=== PATIENT | female | born 1965 | race Caucasian/White ===

== ENCOUNTER → 2017-07-29 08:52 | Outpatient (CLI) | payer MEDICAID, SELFPAY ==
[2017-07-29 10:36] LABS: Hemoglobin A1c 7.5 % (4.2-6.3)
[2017-07-29 10:54] LABS: ALB/GLOB Ratio 1.1 RATIO (0.9-2.4); AST(SGOT) 34 U/L (15-37); Alanine Aminotransfer ALT/SGPT 47 U/L (12-78); Albumin, Serum 3.8 g/dL (3.4-5.0); Alkaline Phosphatase 85 U/L (45-117); Anion Gap 10 (5-15); BUN 17 mg/dL (7-18); BUN/Creat Ratio 21.3 RATIO (10-20); Calcium,Total 9.1 mg/dL (8.5-10.1); Chloride 102 mmol/L (98-107); EST Glomerular Filtration Rate 80 mL/min (>60); Est Glom Filt Rate - Afr Amer 97 mL/min (>60); Globulin 3.6 g/dL (2.2-4.2); Glucose 127 mg/dL (70-110); Potassium 3.7 mmol/L (3.5-5.1); Protein, Total 7.4 g/dL (6.4-8.2); Sodium Level 139 mmol/L (136-145)
== END ==
PROVIDERS: Family Provider Family Medicine; PCP Family Medicine; Visit Provider Nurse Practitioner
DX: E11.9 Type 2 diabetes mellitus without complications (principal)
CPT/HCPCS: 36415; 80053; 83036

== ENCOUNTER → 2017-08-18 16:35 | Outpatient (CLI) | payer MEDICAID, SELFPAY ==
--- NOTE | 2017-08-18 16:39 | RAD_ITS ---
STUDY: X-RAY CHEST REASON FOR EXAM: Female, 52 years old. Cough TECHNIQUE: Frontal and lateral views of the chest. COMPARISON: None. FINDINGS: The lungs are clear and expanded. There is no demonstrated pleural abnormality. Normal size heart. Normal mediastinum and phuong. Normal visualized pulmonary arteries. Normal visualized aortic arch and descending thoracic aorta. Normal visualized thoracic spine. Normal visualized ribs, clavicles, and shoulders. There is no demonstrated abnormality of the visualized soft tissue structures of the upper abdomen. RAD/Chest PA and Lateral IMPRESSION: Normal x-ray examination of the chest. Electronically Signed: Benito Islas MD at 23:59 EST , Service support ,
[2017-08-18 17:53] LABS: Absolute Lymphocyte Count 0.76 X10^3/ul (0.83-4.51); Absolute Neutrophil Count 4.8 X10^3/uL (2.0-7.7); Basophil# 0.02 X10^3/uL; Basophil% 0.3 % (0-1); Eosinophil# 0.28 X10^3/uL; Eosinophils% 4.4 % (0-5); Hematocrit 39.7 % (37-47); Hemoglobin 13.1 g/dl (12.0-15.0); Lymphocyte # 0.76 X10^3/ul (4.0); Lymphocyte % 11.9 % (19-41); Mean Corpuscular Hgb 29.5 pg (27.0-32.0); Mean Corpuscular Volume 89.4 fL (81-99); Mean Platelet Vol. 9.4 fl (6.2-12.0); Monocyte# 0.43 X10^3/uL; Monocyte% 6.8 % (0-10); Neutrophil # 4.83 X10^3/uL (2.7-7.7); Neutrophil % 75.8 % (47-70); Platelet Count 213 K/mm3 (150-450); RBC Distribution Width CV 14.3 % (11.6-14.6); RBC Distribution Width SD 44.7 fl (35.1-43.9); Red Blood Count 4.44 M/mm3 (4.2-5.4); White Blood Count 6.4 K/mm3 (4.4-11.0)
[2017-08-18 17:54] LABS: POSITIVE COUNT NO; POSITIVE DIFFERENTIAL NO; POSITIVE MORPHOLOGY NO
== END ==
PROVIDERS: Family Provider Family Medicine; PCP Family Medicine; Visit Provider Family Medicine
DX: R05 Cough (principal); J45.901 Unspecified asthma with (acute) exacerbation; E11.9 Type 2 diabetes mellitus without complications
CPT/HCPCS: 36415; 71046; 85025

== ENCOUNTER → 2017-11-18 10:42 | Outpatient (CLI) | payer BC, SELFPAY ==
[2017-11-18 12:55] LABS: Hemoglobin A1c 7.8 % (4.2-6.3)
[2017-11-18 12:58] LABS: AST(SGOT) 63 U/L (15-37); Alanine Aminotransfer ALT/SGPT 48 U/L (13-56); Albumin, Serum 3.9 g/dL (3.2-5.0); Alkaline Phosphatase 97 U/L (45-117); Anion Gap 8 (5-15); BUN 12 mg/dL (7-18); BUN/Creat Ratio 13.2 RATIO (10-20); Calcium,Total 8.8 mg/dL (8.5-10.1); Chloride 107 mmol/L (98-107); Cholesterol 125 mg/dL (200); Creatinine, Serum 0.91 mg/dL (0.55-1.02); EST Glomerular Filtration Rate 69 mL/min (>60); Est Glom Filt Rate - Afr Amer 83 mL/min (>60); Globulin 3.8 g/dL (2.2-4.2); Glucose 172 mg/dL (74-106); High Density Lipoprotein 40 mg/dL; Potassium 4.2 mmol/L (3.5-5.1); Protein, Total 7.7 g/dL (6.4-8.2); Sodium Level 139 mmol/L (136-145); T4 Free Direct 0.93 ng/dL (0.76-1.46); Thyroid Stim Hormone (TSH) 2.16 uIU/mL (0.358-3.74); Triglycerides 91 mg/dL; Very Low Density Lipoprotein 18 mg/dL (5-40)
[2017-11-18 15:55] LABS: Microalbumin,Random Urine 6.4 mg/L (NO RANGE EST.); Microalbumin:Creatinine Ratio 4.6 mg/g CRE (<30 mg/g CRE)
== END ==
PROVIDERS: Family Provider Family Medicine; PCP Family Medicine; Visit Provider Nurse Practitioner
DX: E11.65 Type 2 diabetes mellitus with hyperglycemia (principal); E03.9 Hypothyroidism, unspecified; E78.5 Hyperlipidemia, unspecified; E11.69 Type 2 diabetes mellitus with other specified complication
CPT/HCPCS: 36415; 80053; 80061; 82043; 82570; 83036; 84439; 84443

== ENCOUNTER → 2017-12-21 10:22 | Outpatient (CLI) | payer BC, SELFPAY ==
[2017-12-21 12:50] LABS: BUN 13 mg/dL (7-18); Glucose 154 mg/dL (74-106)
[2017-12-21 12:51] LABS: ALB/GLOB Ratio 1.1 RATIO (0.9-2.4); AST(SGOT) 36 U/L (15-37); Alanine Aminotransfer ALT/SGPT 44 U/L (13-56); Albumin, Serum 3.7 g/dL (3.2-5.0); Alkaline Phosphatase 80 U/L (45-117); Anion Gap 9 (5-15); BUN/Creat Ratio 15.1 RATIO (10-20); Calcium,Total 8.9 mg/dL (8.5-10.1); Chloride 107 mmol/L (98-107); Creatinine, Serum 0.86 mg/dL (0.55-1.02); EST Glomerular Filtration Rate 73 mL/min (>60); Est Glom Filt Rate - Afr Amer 88 mL/min (>60); Globulin 3.5 g/dL (2.2-4.2); Potassium 4.3 mmol/L (3.5-5.1); Protein, Total 7.2 g/dL (6.4-8.2); Sodium Level 138 mmol/L (136-145)
== END ==
PROVIDERS: Family Provider Family Medicine; PCP Family Medicine; Visit Provider Nurse Practitioner
DX: E11.65 Type 2 diabetes mellitus with hyperglycemia (principal); E11.69 Type 2 diabetes mellitus with other specified complication; E78.5 Hyperlipidemia, unspecified
CPT/HCPCS: 36415; 80053

== ENCOUNTER → 2018-05-12 20:35 | Outpatient (CLI) | payer BC, SELFPAY | PROVIDERS: Family Provider Family Medicine; PCP Family Medicine; Referring Provider Physician Assistant Surgical; Visit Provider Physician Assistant Surgical | DX: J02.9 Acute pharyngitis, unspecified (principal) | CPT/HCPCS: 87081 ==

== ENCOUNTER → 2018-05-19 10:00 | Outpatient (CLI) | payer BC, SELFPAY ==
[2018-05-12 12:56] VITALS: BMI 43.2
[2018-05-19 10:42] LABS: Hemoglobin A1c 7.5 % (4.2-6.3)
[2018-05-19 11:04] LABS: ALB/GLOB Ratio 1.1 RATIO (0.9-2.4); AST(SGOT) 25 U/L (15-37); Alanine Aminotransfer ALT/SGPT 46 U/L (13-56); Albumin, Serum 3.8 g/dL (3.2-5.0); Alkaline Phosphatase 92 U/L (45-117); Anion Gap 9 (5-15); BUN 15 mg/dL (7-18); BUN/Creat Ratio 17.5 RATIO (10-20); Calcium,Total 8.8 mg/dL (8.5-10.1); Chloride 106 mmol/L (98-107); Creatinine, Serum 0.86 mg/dL (0.55-1.02); EST Glomerular Filtration Rate 73 mL/min (>60); Est Glom Filt Rate - Afr Amer 89 mL/min (>60); Globulin 3.4 g/dL (2.2-4.2); Glucose 151 mg/dL (74-106); Potassium 4.3 mmol/L (3.5-5.1); Protein, Total 7.2 g/dL (6.4-8.2); Sodium Level 141 mmol/L (136-145)
== END ==
PROVIDERS: Family Provider Family Medicine; PCP Family Medicine; Referring Provider Nurse Practitioner; Visit Provider Nurse Practitioner
DX: E11.65 Type 2 diabetes mellitus with hyperglycemia (principal)
CPT/HCPCS: 36415; 80053; 83036

== ENCOUNTER → 2018-06-05 07:01 | Outpatient (CLI) | payer BC, SELFPAY ==
[2018-05-30 13:33] VITALS: BMI 43.2
--- NOTE | 2018-06-05 07:02 | BI_ITS ---
MAMMOGRAPHY - BILATERAL SCREENING REASON FOR EXAM: Female, 52 years old. Routine annual screening examination. PERTINENT HISTORY: Aunt with breast cancer. Remote excisional left breast biopsy. TECHNIQUE: Digital bilateral breast pasquale (3D mammographic acquisition) in the CC and MLO projections. 2-D mediolateral oblique (MLO) and craniocaudad (CC) views of both breasts were obtained. CAD: Full Field Digital Mammography with Computer Added Detection was performed. COMPARISON: Comparison is made with prior study dated August 21, 2015 and June 15, 2014. FINDINGS: Breast Composition: The breasts are almost entirely fatty. There are no dominant masses or suspicious calcifications. Stable small benign-appearing bilateral axillary lymph nodes. No other significant abnormalities are identified. There has been no significant change since the prior study. BI/SCREENING MAMM (CAD), BILAT IMPRESSION: Stable bilateral screening mammogram. Yearly follow-up mammogram recommended. (A) ASSESSMENT CATEGORY: BIRADS Category 2: Benign. A letter regarding these results will be sent to the patient by the facility within 30 days. Approximately 10% of breast cancers are not detected by mammography. A normal mammogram should not delay biopsy of a clinically suspicious abnormality. [id number] Electronically Signed: Vitor Park MD at 11:36 EST Tel [phone], Service support ,
--- OUTSIDE RECORDS SUMMARY | 2018-07-29 04:59 | XMS RPT_ITS ---
:1965 Author Organization [place] Support Name Relationship Address Phone ALBERTOJUDSON Unavailable [address] + [address] [place] [address] [facility] Unavailable [address] + [place] [address] JUDSON DOMINGUEZ Unavailable [address] + [place] [address] [facility] Unavailable Unavailable + [place] [address] JUDSON DOMINGUEZ Unavailable [address] + [place] [address] MOUSTAPHA DOMINGUEZ Unavailable [address] + [place] [address] S Unavailable Unavailable Unavailable JUDSON DOMINGUEZ Unavailable [address] + [place] [address] MOUSTAPHA DOMINGUEZ Unavailable [address] + [place] [address] S Unavailable Unavailable Unavailable JUDSON DOMINGUEZ Unavailable [address] + [place] [address] MOUSTAPHA DOMINGUEZ Unavailable [address] + [place] [address] S Unavailable Unavailable Unavailable JUDSON DOMINGUEZ Unavailable [address] + [place] [address] MOUSTAPHA DOMINGUEZ Unavailable [address] + [place] [address] S Unavailable Unavailable Unavailable JUDSON DOMINGUEZ Unavailable [address] + [place] [address] MOUSTAPHA DOMINGUEZ Unavailable [address] + [place] [address] S Unavailable Unavailable Unavailable JUDSON DOMINGUEZ Unavailable [address] + [place] [address] MOUSTAPHA DOMINGUEZ Unavailable [address] + [place] [address] S Unavailable Unavailable Unavailable JUDSON DOMINGUEZ Unavailable [address] + [place] [address] MOUSTAPHA DOMINGUEZ Unavailable [address] + [place] [address] S Unavailable Unavailable Unavailable JUDSON DOMINGUEZ Unavailable [address] + [place] [address] MOUSTAPHA DOMINGUEZ Unavailable [address] + [place] [address] S Unavailable Unavailable Unavailable JUDSON DOMINGUEZ Unavailable [address] + [place] [address] MOUSTAPHA DOMINGUEZ Unavailable [address] + [place] [address] S Unavailable Unavailable Unavailable JUDSON DOMINGUEZ Unavailable [address] + [place] [address] MOUSTAPHA DOMINGUEZ Unavailable [address] + [place] [address] S Unavailable Unavailable Unavailable JUDSON DOMINGUEZ Unavailable [address] + [place] [address] MOUSTAPHA DOMINGUEZ Unavailable [address] + [place] [address] S Unavailable Unavailable Unavailable JUDSON DOMINGUEZ Unavailable [address] + [place] [address] MOUSTAPHA DOMINGUEZ Unavailable [address] + [place] [address] S Unavailable Unavailable Unavailable JUDSON DOMINGUEZ Unavailable [address] + [place] [address] MOUSTAPHA DOMINGUEZ Unavailable [address] + [place] [address] S Unavailable Unavailable Unavailable Care Team Providers Name Role Phone Adilene Baird Attending Unavailable María Marrero NP-C Attending Unavailable Shaq Hamilton Primary Care Unavailable María Marrero NP-C Attending Unavailable Kasey Rudd Referring Unavailable Shaq Hamilton Primary Care Unavailable Sukumar Hadley Attending Unavailable Alfonso, Shaq Referring Unavailable Alfonso, Shaq Primary Care Unavailable Alfonso, Shaq Attending Unavailable Alfonso, Shaq Referring Unavailable Alfonso, Shaq Primary Care Unavailable Angeles Mir Attending Unavailable Alfonso, Shaq Referring Unavailable Alfonso, Shaq Primary Care Unavailable María Marrero [facility] Attending Unavailable ShookMaría [facility] Referring Unavailable Alfonso, Shaq Primary Care Unavailable Shook, María Hung [facility] Attending Unavailable Alfonso, Shaq Referring Unavailable Alfonso, Shaq Primary Care Unavailable Shook, María Hung [facility] Attending Unavailable Alfonso, Shaq Primary Care Unavailable Sai Walsh Attending Unavailable Alfonso, Shaq Referring Unavailable Nico, Sai Attending Unavailable Alfonso, Shaq Primary Care Unavailable Nico, Sai Referring Unavailable Shook, María Hung [facility] Attending Unavailable Shook, María Hung [facility] Referring Unavailable Alfonso, Shaq Primary Care Unavailable Sholesli, María Hung [facility] Attending Unavailable Alfonso, Shaq Referring Unavailable Oleghe, Efewongbe Attending Unavailable Alfonso, Shaq Referring Unavailable Oleghe, Efewongbe Attending Unavailable Oleghe, Efewongbe Referring Unavailable Oleghe, Efewongbe Primary Care Unavailable María Marrero [facility] Consulting Unavailable PROBLEMS PROBLEMS DATE TYPE CONDITION / CODE ATTENDING STATUS SOURCE 05/30/2018 Unknown Z12.31 - Encounter Oleghe, Active [facility] for screening [facility] mammogram for Hospital malignant neoplasm Repository of breast / Z12.31(ICD-10) 05/30/2018 Unknown E11.9 - Type 2 Oleghe, Active [facility] diabetes mellitus [facility] without Hospital complications / Repository E11.9(ICD-10) 05/30/2018 Unknown R13.10 - Dysphagia, Oleghe, Active [facility] unspecified / [facility] R13.10(ICD-10) Hospital Repository 05/30/2018 Unknown H91.90 - Oleghe, Active [facility] Unspecified hearing [facility] loss, unspecified Hospital ear / Repository H91.90(ICD-10) 05/15/2018 Unknown J02.9 - Acute Sai Walsh Active [facility] pharyngitis, Community unspecified / Hospital J02.9(ICD-10) Repository 11/23/2017 Unknown E03.9 - María Marrero Active [facility] Hypothyroidism, [facility] Community unspecified / Hospital E03.9(ICD-10) Repository 11/23/2017 Unknown E11.65 - Type 2 María Marrero Active [facility] diabetes mellitus [facility] Community with hyperglycemia Hospital / E11.65(ICD-10) Repository 11/23/2017 Unknown E11.69 - Type 2 María Marrero Active [facility] diabetes mellitus [facility] with other Hospital specified Repository complication / E11.69(ICD-10) 11/23/2017 Unknown I10 - Essential María Marrero Active [facility] (primary) [facility] hypertension / Hospital I10(ICD-10) Repository 11/18/2017 Unknown E78.5 - María Marrero Active [facility] Hyperlipidemia, [facility] Community unspecified / Hospital E78.5(ICD-10) Repository 08/20/2017 Unknown R50.9 - Fever, Mir, Active [facility] unspecified / [facility] R50.9(ICD-10) Hospital Repository PROCEDURES PROCEDURES No Procedure Records FoundRESULTS RESULTS SCREENING MAMM (CAD), Observed: 06/05/2018 Status: F Source: [facility] 7:02 AM [facility] HOSPITAL REPOSITORY [facility] Imaging Services [address] [place] [address] SCREENING MAMM (CAD), [facility] MR#: [id number] Acct: [id number] Name: GEOVANNA DOMINGUEZ Rep #: [id number] : 1965 F 52 From: Vitor Park MD PCP: Marietta Strickland MD Status: [facility] Study: SCREENING MAMM (CAD), BILAT Date of Exam: 06/05/18 Exam# [id number] Ordering Dr: Marietta Strickland MD MAMMOGRAPHY - BILATERAL SCREENING REASON FOR EXAM: Female, 52 years old. Routine annual screening examination. PERTINENT HISTORY: Aunt with breast cancer. Remote excisional left breast biopsy. TECHNIQUE: Digital bilateral breast pasquale (3D mammographic acquisition) in the CC and MLO projections. 2-D mediolateral oblique (MLO) and craniocaudad (CC) views of both breasts were obtained. CAD: Full Field Digital Mammography with Computer Added Detection was performed. COMPARISON: Comparison is made with prior study dated August 21, 2015 and June 15, 2014. FINDINGS: Breast Composition: The breasts are almost entirely fatty. There are no dominant masses or suspicious calcifications. Stable small benign-appearing bilateral axillary lymph nodes. No other significant abnormalities are identified. There has been no significant change since the prior study. BI/SCREENING MAMM (CAD), BILAT IMPRESSION: Stable bilateral screening mammogram. Yearly follow-up mammogram recommended. (A) ASSESSMENT CATEGORY: BIRADS Category 2: Benign. A letter regarding these results will be sent to the patient by the facility within 30 days. Approximately 10% of breast cancers are not detected by mammography. A normal mammogram should not delay biopsy of a clinically suspicious abnormality. [id number] Electronically Signed: Vitor Park MD at 11:36 EST Tel [phone], Service support , CC: Marietta Strickland MD Wood Technologist: Signed INTERNAL MEDICINE Observed: 06/02/2018 Status: F Source: [facility] OFFICE VISIT 1:26 PM [facility] Internal Medicine [address] [place] [address] [address] [place] [address] OFFICE VISIT Date of Service: 05/30/18 MR#: [id number] Acct: [id number] Name: GEOVANNA DOMINGUEZ Rep #: [id number] : 1965 Provider: Marietta Strickland MD Age/Sex: 52/F Location: [facility] Status: Signed Intake Vital Signs05/30/18 Body Mass Index (BMI) 43.2 05/30/18 Height 5 ft 7.5 in Intake Visit Reasons: EST Chief Complaint: EST Care. Is patient in pain?: No Allergies hay fever Allergy (Severe, Uncoded 05/30/18 13:27) Unknown poison faith Allergy (Severe, Uncoded 05/30/18 13:27) Unknown Medications aspirin 81 mg tablet,delayed release 81 mg PO QDAY 07/18/17 [History Confirmed 05/22/18] metformin ER 500 mg tablet,extended release 24 hr 1,000 mg PO BID tab 07/18/17 [History Confirmed 05/22/18] albuterol sulfate HFA 90 mcg/actuation aerosol inhaler See Rx Instructions INHALATION Q4H PRN g 08/03/17 [History Confirmed 05/22/18] levothyroxine 100 mcg capsule 100 mcg PO QDAY #60 cap 11/23/17 [Rx Confirmed 05/22/18] lisinopril 20 mg tablet 20 mg PO QDAY #30 tab 11/23/17 [Rx Confirmed 05/22/18] lovastatin 20 mg tablet 20 mg PO QPM #30 tab 11/23/17 [Rx Confirmed 05/22/18] glyburide 5 mg tablet 10 mg PO BID #180 tab 01/02/18 [Rx Confirmed 05/22/18] dulaglutide 1.5 mg/0.5 mL subcutaneous pen injector 1.5 mg SC QWEEK #2 ml 05/30/18 [Rx Confirmed 05/30/18] Post menopausal: Yes Nurse's Note: Pt presents today to establish care. [facility] Medical History Anemia (Acute) Back problem (Acute) Bone fracture (Acute) Breast lump (Acute) Chronic bronchitis (Acute) Depression (Acute) Diabetes type 2, controlled (Acute) Gallstones (Acute) High cholesterol (Acute) Pneumonia (Acute) Seasonal allergies (Acute) UTI (urinary tract infection) (Acute) Vision problems (Acute) Surgical History H/O colonoscopy (Acute) Hx of cholecystectomy (Acute) S/P lumpectomy, left breast (Acute) Family History Mother Arthritis High cholesterol Thyroid disorder Melanoma Hypertension Father Cancer Brother Arthritis Unknown Cancer Heart disease Hypertension High cholesterol Melanoma Social History Smoking Status: Never smoker second hand exposure: No alcohol intake: never substance use type: does not use HPI HPI Chief Complaint: EST Care. Details: GEOVANNA DOMINGUEZ, is a 52yo F who presents to the office today to establish care. She also has some concerns. She has past medical history of hypertension, type II diabetes mellitus, hypothyroidism obstructive sleep apnea and obesity. A1c is said to have averaged around 7 with her most recent A1c of 7.5. She states that she has not been able to get her A1c less than this. Has been on glyburide and metformin however has not been able to afford all other diabetic medications. She reports compliance with medications. Despite her best efforts, she has struggled with weight management. Currently on a BMI of 43. She also reports concern about hearing impairment and problems with swallowing. This is said to have been ongoing for several months and has progressively worsened. She states that she wakes up at night with a choking sensation ROS Const Constitutional: No anorexia, body ache, chills, fever(s), decreased energy, malaise, night sweats, weight change, sleep problems, other, snoring, weakness, frequent falls, headache(s), abnormal sleep pattern, change in appetite, excessive sweating or fatigue Eyes Eyes: No blurry vision, change in vision, double vision, discharge, dry eyes, bulging eyes, floaters, eye pain, light sensitivity, spots in vision, tunnel vision, other or visual disturbances ENT ENT: Positive for hearing loss, tinnitus and difficulty swallowing; no ear pain, ear discharge, ear pressure, dizziness/vertigo, balance problems, nosebleed/epistaxis, nasal congestion, nasal obstruction, nose pain, sinus pressure, sinus pain, nasal discharge, post nasal drip, facial pain, dental pain, dry mouth, bad breath, hoarseness, mouth lesions, mouth pain, sore throat, neck pain, abnormal hearing, headache(s), other, lip swelling, throat swelling or tongue swelling Resp Respiratory: No cough, change in phlegm color, chest congestion, excessive phlegm production, hemoptysis, pain on inspiration, shortness of breath, pain with cough, snoring, stridor, other or wheezing Cardio Cardiology: No chest pain at rest, chest pain with exertion, leg pain with exertion, shortness of breath, dyspnea on exertion, generalized swelling, irregular heart rhythm, lightheadedness, orthopnea, radiating jaw, neck or arm pain, fast heart rate, slow heart rate, palpitations, other or excessive sweating Gastro GI: Positive for difficulty swallowing; no abdominal pain, belching, bloating, change in bowel habits, change in stool character, coffee ground emesis, constipation, cramping, diarrhea, heartburn, feeling full early, excessive flatus, incontinent of stools, Vomiting blood/hematemesis, blood in stool, loose stools, Black,tarry stools, nausea/dyspepsia, pain with swallowing, vomiting or other Genitourinary-Female: No difficulty urinating, burning urination, painful urination, urinary incontinence, urinary frequency, urinary urgency, urinary hesitancy, urinary retention, blood in urine, Frequent nighttime urination/ nocturia, post void dribbling, suprapubic fullness, side pain, sexual problems, genital lesions, genital itching, hot flashes, abnormal periods, abnormal vaginal bleeding, absent period, painful periods, light periods, heavy periods, difficulty getting , painful intercourse, pelvic pain, vaginal dryness, vaginal odor, Vaginal Itching or other Musc Musculoskeletal: Positive for muscle weakness; no joint pain, back pain, deformity, joint swelling, limited range of motion, loss of height, muscle cramps, decreased muscle mass, body aches, neck pain, radiating pain into limb, stiffness, other, abnormal walking, numbness or tingling Skin Skin: No acne, hair loss, change in hair, nail changes, boil, change in skin color, dry skin, redness, excessive hair growth, yellowing of the skin, lesions, rash, skin pain, skin ulcer, sores, skin swelling, wounds, other or itching Breast Breast: No change in breast shape, breast lump, breast pain, breast skin changes, breast swelling, nipple discharge or other Neuro Neurology: No abnormal walking, abnormal hearing, abnormal movements, abnormal speech, unsteady gait/balance, dizziness, weakness, frequent falls, headache(s), lack of coordination, loss of vision, numbness, tingling, visual disturbances, restless legs, fainting, tremor(s), other, behavioral changes, confusion or memory loss Psych Psychiatric: No abnormal sleep pattern, No lack of enjoyment, No anxiety, No behavioral changes, No change in appetite, No confusion, No depression, No difficulty concentrating, No hopelessness, No irritability, No memory loss, No mood swings, No panic attacks, No paranoia, No Thoughts of harming yourself/Others, No hallucinations, No other Endo Endocrine: No change in body appearance, cold intolerance, excessive sweating, fatigue, flushing, heat intolerance, increased thirst/drinking, increased hunger, increased urination or other Aller/Imm Allergy/Immunologic: No food intolerance, itchy eyes, lip swelling, seasonal allergy symptoms, throat swelling, tongue swelling, hives, wheezing or other Mickey/Lymp Hematologic/Lymphatic: No easy bleeding, easy bruising, enlarged lymph nodes or other Exam Const General: cooperative Orientation: alert, awake, oriented x3 HENMT Head: atraumatic, normocephalic, normal to inspection Ears: hearing grossly normal bilaterally Resp Effort AND Inspection: normal respiratory effort, able to speak in complete sentences Auscultation: Bilateral: Clear to Auscultation Cardio Rate: regular rate Rhythm: regular rhythm Heart Sounds: S1 normal, S2 normal GI Palpation: soft, no hepatosplenomegaly Musc Musculoskeletal: Yes muscle weakness Neuro General: alert, awake, oriented x3, moves all extremities, CN's II-XI intact bilaterally Extrem General: no clubbing, cyanosis or edema Psych Appearance: grossly normal Mental Status: mental status grossly normal Mood: congruent mood Affect: normal affect Assessment AND Plan 1. Problems with swallowing R13.10 Plan Said to have an ongoing for couple of months and is worsening. Reports occasionally aspirating during the day and at night/in her sleep. Refer to ENT. Orders Referrals: 2. Hearing impairment H91.90 Plan Also said to be worsening. No cerumen impaction on examination. Associated history of tinnitus. ENT referral as above. Orders Referrals: 3. Type 2 diabetes mellitus E11.9 Plan Chronic. Poorly controlled. [id number]. Due to her associated morbid obesity, I believe she will do well with the GLP-1 on SGL T-2. Cost has been an issue we will attempt to get the most cost effective medication for patient. Also did speak about the why weight program however patient will like to try out a program through her insurance/'s company. Continue current medication for now. Orders Referrals: 4. Morbid obesity E66.01 Plan Plan as above. 5. Sleep apnea G47.30 Plan Using and benefiting from CPAP. Concerns at this time. Continue current management. 6. Health care maintenance Z00.00 Plan Mammogram ordered. Pap smear due in about a year. Follows up with Dr. White for colonoscopies. Has had it every 5 years due to her family history of colon cancer. This note was generated with Hyperpotation software. It may contain incorrect words, spelling, and punctuation that were not noted in checking the note before signing. Plan Detail Other Orders Orders: Other Medications New: Coding Level of Care Code Off vis,new,level 4 Diagnoses Problems with swallowing R13.10 Hearing impairment H91.90 Type 2 diabetes mellitus E11.9 Morbid obesity E66.01 Sleep apnea G47.30 Health care maintenance Z00.00 06/02/18 1326 <Electronically signed by Marietta Strickland MD> Date Marietta Strickland MD Cosigner Signature: Date (if applicable) CC: ENDOCRINOLOGY VISIT Observed: 05/23/2018 Status: F Source: [facility] REPORT 8:26 AM [facility] [address] [place] [address] [address] [place] [address] OFFICE VISIT Date of Service: 05/22/18 MR#: [id number] Acct: [id number] Name: GEOVANNA DOMINGUEZ Rep #: [id number] : 1965 Provider: María Marrero NP Age/Sex: 52/F [place] [facility] [place]: Signed HPI History of present illness Geovanna Dominguez is a 52 year old female who presents for follow up of diabetes type 2. Diagnosed in 2009. Continues on glyburide, metformin. A1c down from 7.8 and is now 7.5 Did have A1c of 6.5 but due to cost issues we had to change medications to ones she could afford. At time of visit: -Pt denies symptoms of hypertensive emergency (CP,SOB,WEEKS, or blurred vision) and hypotension(dizziness or lightheadedness) -Pt denies symptoms of hypoglycemia ( sweaty, confusion, anxiety, tremor, hunger, palpitations) and hyperglycemia ( polydipsia, polyuria) -Pt denies potential medication adverse effect. Hypoglycemia Aware of hypoglycemia: Yes Able to self treat low BG: Yes Frequent low Blood sugar: No Has supply of glucagon: No Diet Breakfast is dried fruit and yogurt Lunch is usually left overs. Dinner is meat, potato and vegetables. Exam Const General: comfortable, well groomed Nutritional Appearance: overweight Orientation: oriented x3 HENMT Head: normal to inspection, atraumatic Ears: hearing grossly normal bilaterally Nose: nasal discharge Mouth: oral mucosae normal, moist mucous membranes Teeth and gingiva: dentition normal Eyes General: appearance normal, both eyes and all related structures Eyelids: eyelids normal Conjunctivae: conjunctivae normal Pupils: PERRL Neck Neck: normal visual inspection Neck mass: No Chest Chest palpation AND inspection: deferred Resp Effort AND Inspection: normal respiratory effort, able to speak in complete sentences, symmetric chest movement, cough Cardio Rate: regular rate Rhythm: regular rhythm Heart Sounds: S1 normal, S2 normal GI Inspection: normal to inspection Auscultation: normal bowel sounds Palpation: soft, no guarding General: deferred Skin General: no rashes or lesions noted Wounds: no wounds Diabetic Foot Pulses: L dorsalis pedis pulse: normal, R dorsalis pedis pulse: normal Monofilament test: Left foot: normal, Right foot: normal. Dry heels bilaterally. Neuro General: gait normal, normal light touch, pain and propioception Cognition: normal cognition Speech: speech normal Gait: normal gait Extrem General: normal to inspection, no pedal edema Psych Appearance: well kempt Mental Status: mental status grossly normal Mood: congruent mood Speech and Movement: speech and movement normal Thought Process: normal Thought Content: normal Judgment: judgment good Type: type 2 Cardiopulmonary symptoms: Denies chest pain at rest, myalgias or dizziness GI symptoms: Denies vomiting, constipation, diarrhea or increased hunger Skin and extremity symptoms: Denies tingling/numbness/burning Other symptoms: Denies change in vision, blurry vision or depression Pertinent visit history: Denies recent visit to ER, recent hospital admission or recent 911 calls Self monitoring: Yes Dietary compliance: Diabetes: good Diabetes education in past year: Yes Glucose testing: demonstrates correct use of meter, understands testing schedule Sick day education - understands ketone testing: Yes Physical activity: regular Intake Vital Signs05/22/18 Height 5 ft 7.5 in 05/22/18 Weight: 280 lb 05/22/18 Body Mass Index (BMI) 43.2 05/22/18 Blood Pressure 128/80 H H 05/22/18 Blood Pressure Location Lt brachial Intake Visit Reasons: Diabetes Mellitus Type 2 Coder Operator Required: No Accompanied by: Self Is patient in pain?: No Allergies hay fever Allergy (Severe, Uncoded 05/12/18 12:57) Unknown poison faith Allergy (Severe, Uncoded 05/12/18 12:57) Unknown Medications aspirin 81 mg tablet,delayed release 81 mg PO QDAY 07/18/17 [History Confirmed 05/22/18] metformin ER 500 mg tablet,extended release 24 hr 1,000 mg PO BID tab 07/18/17 [History Confirmed 05/22/18] methylcellulose (laxative) 500 mg tablet 500 mg PO QDAY tab 07/18/17 [History Confirmed 05/22/18] albuterol sulfate HFA 90 mcg/actuation aerosol inhaler See Rx Instructions INHALATION Q4H PRN g 08/03/17 [History Confirmed 05/22/18] cholecalciferol (vitamin D3) 5,000 unit capsule 5,000 unit PO QDAY 08/03/17 [History Confirmed 05/22/18] colesevelam 625 mg tablet 1,250 mg PO BID #360 tab 08/03/17 [Rx Confirmed 05/22/18] levothyroxine 100 mcg capsule 100 mcg PO QDAY #60 cap 11/23/17 [Rx Confirmed 05/22/18] lisinopril 20 mg tablet 20 mg PO QDAY #30 tab 11/23/17 [Rx Confirmed 05/22/18] lovastatin 20 mg tablet 20 mg PO QPM #30 tab 11/23/17 [Rx Confirmed 05/22/18] glyburide 5 mg tablet 10 mg PO BID #180 tab 01/02/18 [Rx Confirmed 05/22/18] PFSH Medical History Anemia (Acute) Back problem (Acute) Bone fracture (Acute) Breast lump (Acute) Chronic bronchitis (Acute) Depression (Acute) Diabetes type 2, controlled (Acute) Gallstones (Acute) High cholesterol (Acute) Pneumonia (Acute) Seasonal allergies (Acute) UTI (urinary tract infection) (Acute) Vision problems (Acute) Surgical History H/O colonoscopy (Acute) Hx of cholecystectomy (Acute) S/P lumpectomy, left breast (Acute) Family History Mother Arthritis High cholesterol Thyroid disorder Melanoma Hypertension Father Cancer Brother Arthritis Unknown Cancer Heart disease Hypertension High cholesterol Melanoma Social History Smoking Status: Never smoker second hand exposure: No alcohol intake: never substance use type: does not use ROS Const Constitutional: No chills, fever(s) or night sweats Eyes Eyes: No change in vision or blurry vision ENT ENT: No ear pain, ear discharge, nasal congestion or nosebleed/epistaxis Resp Respiratory: Positive for cough (treated cold); no shortness of breath Cardio Cardiology: No chest pain at rest, chest pain with exertion or generalized swelling Gastro GI: No vomiting, constipation, diarrhea or abdominal pain Genitourinary-Female: No difficulty urinating or burning urination Musc Musculoskeletal: No joint pain, back pain, muscle cramps or body aches Skin Skin: No lesions or rash Breast Breast: No breast lump Neuro Neurology: No dizziness or fainting Psych Psychiatric: No depression, No anxiety Endo Endocrine: No increased thirst/drinking or increased hunger Mickey/Lymp Hematologic/Lymphatic: No easy bleeding or easy bruising Assessment AND Plan Problems 1. Uncontrolled type 2 diabetes mellitus without complication, without long-term current use of insulin E11.65 2. Hypothyroidism (acquired) E03.9 3. Hyperlipidemia associated with type 2 diabetes mellitus E11.69; E78.5 Plan 1. Please schedule follow up in 3 months. 2. Lab work one week before appointment. 3. Discussed importance of regular exercise and recommend starting or continuing a regular exercise program for good health. 4. The patient was encouraged to lose weight for good health 5. The importance of monitoring blood sugar regularly was reviewed. 6. The importance of monitoring the HBA1c level regularly was reviewed. 7. The importance of prper foot care and regularly checking feet to prevent sores and loss of limbs was reviewed. 8. The importance of keeping BP at or below 130/80 to prevent stroke, heart attacks, kidney failure, blindness was reviewed. Spent approximately 30 minutes with patient with over 50% of time spent in discussion and counseling regarding medication adjustment, symptoms and treatment of hypoglycemia, diet adherence, and checking BG before driving. Coding Level of Care Code Off vis,est,level 4 Diagnoses Uncontrolled type 2 diabetes mellitus without complication, without long-term current use of insulin E11.65 Hypothyroidism (acquired) E03.9 Hyperlipidemia associated with type 2 diabetes mellitus E11.69; E78.5 05/23/18 0826 <Electronically signed by María HINOJOSA> Date María HINOJOSA Cosigner Signature: Date (if applicable) CC: HEMOGLOBIN A1C Collected: 05/19/2018 Status: F Source: [place] 10:05 [facility] [place] REPOSITORY TYPE CODE TESTS RESULT OUT OF RANGE REFERENCE UNITS LAB L501.9985 4.2-6.3 % High HGB A1C 7.5 Performed By: #### L501.9985 #### [facility] [place], [address] COMPREHENSIVE METABOLIC Collected: 05/19/2018 Status: F Source: [facility] 10:05 [facility] [place] REPOSITORY TYPE CODE TESTS RESULT OUT OF RANGE REFERENCE UNITS LAB L501.0100 74-106 mg/dL High GLU 151 Result Comment: Fasting Glucose result greater than or equal to 126 mg/dL suggests DIABETES MELLITUS per A.D.A. criteria. Please note revised GLUCOSE reference range effective 2017. LAB L501.1000 7-18 mg/dL Normal BUN 15 LAB L501.1100 0.55-1.02 mg/dL Normal CREAT,SERUM 0.86 Result Comment: The validity of the calculated GFR AND GFRAA in patients over 70 years has not been determined. Clinical correlation is essential. LAB L501.1110 >60 mL/min Normal EST GFR 73 Result Comment: Non- GFR Calc LAB L501.1115 >60 mL/min Normal EST GFR - AA 89 Result Comment: GFR Calc LAB L501.1300 10-20 RATIO Normal BUN/CRE 17.5 LAB L501.1500 6.4-8.2 g/dL T Normal PROT 7.2 LAB L501.1800 3.2-5.0 g/dL Normal ALB 3.8 LAB L501.1950 2.2-4.2 g/dL Normal GLOB 3.4 LAB L501.2000 0.9-2.4 RATIO Normal A/G 1.1 LAB L501.2200 8.5-10.1 mg/dL CA Normal 8.8 LAB L501.4100 15-37 U/L Normal AST 25 LAB L501.4305 45-117 U/L Normal ALK P 92 LAB L501.4405 13-56 U/L Normal ALT 46 LAB L501.4600 0.20-1.00 mg/dL T Normal BILI 0.30 LAB L501.5300 136-145 mmol/L NA Normal 141 LAB L501.5600 3.5-5.1 mmol/L K Normal 4.3 LAB L501.5900 98-107 mmol/L CL Normal 106 LAB L501.6100 21.0-32.0 mmol/L Normal CO2 26.0 LAB L501.6200 5-15 Normal GAP 9 Performed By: #### L500.4050 #### [facility] [address] [place], [place], [id number] URGENT CARE VISIT Observed: 05/12/2018 Status: F Source: [place] RE[place] 3:23 PM [facility] [place] [address] [place], [place] [address] OFFICE VISIT Date of Service: 05/12/18 MR#: [id number] Acct: [id number] Name: GEOVANNA DOMINGUEZ Rep #: [id number] : 1965 Provider: Sai TORIBIO Age/Sex: 52/F Location: [facility] Status: Signed Intake Vital Signs05/12/18 Height 5 ft 7.5 in 05/12/18 Weight: 280 lb 05/12/18 Body Mass Index (BMI) 43.2 05/12/18 Blood Pressure 128/84 H 05/12/18 Respiratory Rate 14 Intake Visit Reasons: SORE THROAT Chief Complaint: SORE THROAT Coder Operator Required: No Accompanied by: SELF Is patient in pain?: No Allergies hay fever Allergy (Severe, Uncoded 05/12/18 12:57) Unknown poison faith Allergy (Severe, Uncoded 05/12/18 12:57) Unknown Medications aspirin 81 mg tablet,delayed release 81 mg PO QDAY 07/18/17 [History Confirmed 05/12/18] losartan 50 mg tablet 50 mg PO QDAY 07/18/17 [History Confirmed 05/12/18] metformin ER 500 mg tablet,extended release 24 hr 1,000 mg PO BID tab 07/18/17 [History Confirmed 05/12/18] methylcellulose (laxative) 500 mg tablet 500 mg PO QDAY tab 07/18/17 [History Confirmed 05/12/18] albuterol sulfate HFA 90 mcg/actuation aerosol inhaler See Rx Instructions INHALATION Q4H PRN g 08/03/17 [History Confirmed 05/12/18] cetirizine 10 mg capsule 10 mg PO QDAY 08/03/17 [History Confirmed 05/12/18] cholecalciferol (vitamin D3) 5,000 unit capsule 5,000 unit PO QDAY 08/03/17 [History Confirmed 05/12/18] colesevelam 625 mg tablet 1,250 mg PO BID #360 tab 08/03/17 [Rx Confirmed 05/12/18] thyroid (pork) 65 mg tablet 65 mg PO QDAY #90 tab 08/03/17 [Rx Confirmed 05/12/18] levothyroxine 100 mcg capsule 100 mcg PO QDAY #60 cap 11/23/17 [Rx Confirmed 05/12/18] lisinopril 20 mg tablet 20 mg PO QDAY #30 tab 11/23/17 [Rx Confirmed 05/12/18] lovastatin 20 mg tablet 20 mg PO QPM #30 tab 11/23/17 [Rx Confirmed 05/12/18] glyburide 5 mg tablet 10 mg PO BID #180 tab 01/02/18 [Rx Confirmed 05/12/18] PFSH Medical History Anemia (Acute) Back problem (Acute) Bone fracture (Acute) Breast lump (Acute) Chronic bronchitis (Acute) Depression (Acute) Diabetes type 2, controlled (Acute) Gallstones (Acute) High cholesterol (Acute) Pneumonia (Acute) Seasonal allergies (Acute) UTI (urinary tract infection) (Acute) Vision problems (Acute) Surgical History H/O colonoscopy (Acute) Hx of cholecystectomy (Acute) S/P lumpectomy, left breast (Acute) Family History Mother Arthritis High cholesterol Thyroid disorder Melanoma Hypertension Father Cancer Brother Arthritis Unknown Cancer Heart disease Hypertension High cholesterol Melanoma Social History Smoking Status: Never smoker second hand exposure: No alcohol intake: never substance use type: does not use HPI HPI Chief Complaint: SORE THROAT Details: GEOVANNA DOMINGUEZ, is a 52 F who presents to the office today for sore throat for the past 7 days. Patient states that she started with a sore throat 7 days ago which has progressively worsened. She states that recently she has had increasing amount of drainage down the back of her throat. She denies fever, chills, sweats. No nausea, vomiting, diarrhea. No cough, shortness of breath or difficulty breathing. No other associated symptoms or alleviating/aggravating factors. ROS Const Constitutional: No fever(s), headache(s), anorexia, chills or abnormal sleep pattern ENT ENT: Positive for post nasal drip, sore throat, nasal congestion and nasal discharge; no headache(s) or ear pain Resp Respiratory: No shortness of breath Cardio Cardiology: No irregular heart rhythm or palpitations Gastro GI: No nausea/dyspepsia Neuro Neurology: No headache(s) or behavioral changes Psych Psychiatric: No abnormal sleep pattern, No behavioral changes Exam Const General: cooperative, healthy appearing [facility] Head: normal to inspection Ears: hearing grossly normal bilaterally, TM's normal bilaterally, EAC's normal Nose: external nose normal, nasal discharge clear Mouth: oral mucosae normal Throat: abnormal tonsil bilaterally Resp Effort AND Inspection: normal respiratory effort Auscultation: Bilateral: Clear to Auscultation Cardio Palpation: normal PMI Rate: regular rate Rhythm: regular rhythm Neuro General: CN's II-XI intact bilaterally, alert Psych Appearance: grossly normal Mental Status: mental status grossly normal Assessment AND Plan Problems 1. Acute pharyngitis, unspecified etiology J02.9 Status Acute Plan Negative strep test in the office today. Encouraged to get plenty of rest, drink lots of clear liquids, and use Tylenol or Ibuprofen (unless contraindicated) for fever and comfort. Patient also educated on other symptomatic management techniques. To be seen in 7-10 days if no improvement; sooner if worsening of symptoms. Orders Orders: Coding Level of Care Code Off vis,est,level 3 Diagnoses Acute pharyngitis, unspecified etiology J02.9 Pharyngitis/tonsillitis etiology: unspecified etiology 05/12/18 1523 <Electronically signed by Sai TORIBIO> Date Sai TORIBIO Cosigner Signature: Date (if applicable) CC: Observed: 05/12/2018 Status: F Source: [place]N MARTINEZ, R/O STREP A 1:00 PM [facility] [place] ANDREA Culture No Group A Beta Streptococcus isolated. * This cultures intended use is to screen for Beta Streptococcus A only. All other pathogens and potential pathogens will not be screened for or reported. If a complete workup of all potential pathogens is indicated an order for a routine throat culture is required. Performed By: #### M100.010 #### [facility] [address] [place], [place], [address] COMPREHENSIVE METABOLIC Collected: 12/21/2017 Status: F Source: [place]N RODRIGUEZ 10:27 AM [facility] [place] TYPE CODE TESTS RESULT OUT OF RANGE REFERENCE UNITS LAB L501.0100 74-106 mg/dL High GLU 154 Result Comment: Fasting Glucose result greater than or equal to 126 mg/dL suggests DIABETES MELLITUS per A.D.A. criteria. Please note revised GLUCOSE reference range effective 2017. LAB L501.1000 7-18 mg/dL Normal BUN 13 LAB L501.1100 0.55-1.02 mg/dL Normal CREAT,SERUM 0.86 Result Comment: The validity of the calculated GFR AND GFRAA in patients over 70 years has not been determined. Clinical correlation is essential. LAB L501.1110 >60 mL/min Normal EST GFR 73 Result Comment: Non- GFR Calc LAB L501.1115 >60 mL/min Normal EST GFR - AA 88 Result Comment: GFR Calc LAB L501.1300 10-20 RATIO Normal BUN/CRE 15.1 LAB L501.1500 6.4-8.2 g/dL T Normal PROT 7.2 LAB L501.1800 3.2-5.0 g/dL Normal ALB 3.7 LAB L501.1950 2.2-4.2 g/dL Normal GLOB 3.5 LAB L501.2000 0.9-2.4 RATIO Normal A/G 1.1 LAB L501.2200 8.5-10.1 mg/dL CA Normal 8.9 LAB L501.4100 15-37 U/L Normal AST 36 LAB L501.4305 45-117 U/L Normal ALK P 80 LAB L501.4405 13-56 U/L Normal ALT 44 LAB L501.4600 0.20-1.00 mg/dL T Normal BILI 0.50 LAB L501.5300 136-145 mmol/L NA Normal 138 LAB L501.5600 3.5-5.1 mmol/L K Normal 4.3 LAB L501.5900 98-107 mmol/L CL Normal 107 LAB L501.6100 21.0-32.0 mmol/L Normal CO2 22.0 LAB L501.6200 5-15 Normal GAP 9 Performed By: #### L500.4050 #### [facility] [address] [place], [place], [address] ENDOCRINOLOGY VISIT Observed: 11/23/2017 Status: F Source: [place] REPORT 6:39 PM [facility] [place] [facility] [address] [place] [address] OFFICE VISIT Date of Service: 11/23/17 MR#: [id number] Acct: [id number] Name: GEOVANNA DOMINGUEZ Rep #: [id number] : 1965 Provider: María Marrero NP Age/Sex: 52/F Location: [facility] Status: Signed HPI History of present illness History of present illness Geovanna Dominguez is a 52 year old female who presents for follow up of diabetes type 2. Diagnosed in 2009. Continues on glyburide, metformin. A1c was 6.9 in the summer and is currently 7.8. At time of visit: -Pt denies symptoms of hypertensive emergency (CP,SOB,WEEKS, or blurred vision) and hypotension(dizziness or lightheadedness) -Pt denies symptoms of hypoglycemia ( sweaty, confusion, anxiety, tremor, hunger, palpitations) and hyperglycemia ( polydipsia, polyuria) -Pt denies potential medication adverse effect. Hypoglycemia Aware of hypoglycemia: Yes Able to self treat low BG: Yes Frequent low Blood sugar: No Has supply of glucagon: No Diet Breakfast is dried fruit and yogurt Lunch is usually left overs. Dinner is meat, potato and vegetables. Weight and fatigue symptoms: Denies snoring Cardiopulmonary symptoms: Denies chest pain at rest, dyspnea on exertion, lightheadedness or myalgias GI symptoms: Denies constipation, diarrhea, nausea/dyspepsia or vomiting Other symptoms: Denies blurry vision or change in vision Pertinent visit history: Denies recent 911 calls or recent visit to ER Self monitoring: Yes Exam Const General: comfortable, well groomed Nutritional Appearance: overweight Orientation: oriented x3 HENMT Head: normal to inspection, atraumatic Ears: hearing grossly normal bilaterally Nose: nasal discharge Mouth: oral mucosae normal, moist mucous membranes Teeth and gingiva: dentition normal Eyes General: appearance normal, both eyes and all related structures Eyelids: eyelids normal Conjunctivae: conjunctivae normal Pupils: PERRL Neck Neck: normal visual inspection Neck mass: No Chest Chest palpation AND inspection: deferred Resp Effort AND Inspection: normal respiratory effort, able to speak in complete sentences, symmetric chest movement, cough Cardio Rate: regular rate Rhythm: regular rhythm Heart Sounds: S1 normal, S2 normal GI Inspection: normal to inspection Auscultation: normal bowel sounds Palpation: soft, no guarding General: deferred Skin General: no rashes or lesions noted Wounds: no wounds Diabetic Foot Pulses: L dorsalis pedis pulse: normal, R dorsalis pedis pulse: normal Monofilament test: Left foot: normal, Right foot: normal Neuro General: gait normal, normal light touch, pain and propioception Cognition: normal cognition Speech: speech normal Gait: normal gait Extrem General: normal to inspection, no pedal edema Psych Appearance: well kempt Mental Status: mental status grossly normal Mood: congruent mood Speech and Movement: speech and movement normal Thought Process: normal Thought Content: normal Judgment: judgment good Weight and fatigue symptoms: Denies snoring Cardiopulmonary symptoms: Denies chest pain at rest, dyspnea on exertion, lightheadedness or myalgias GI symptoms: Denies constipation, diarrhea, nausea/dyspepsia or vomiting Other symptoms: Reports change in vision (borderline glaucoma); denies blurry vision Intake Vital Signs11/23/17 Height 5 ft 7.5 in 11/23/17 Weight: 280 lb 4 oz 11/23/17 Body Mass Index (BMI) 43.2 11/23/17 Blood Pressure 149/88 11/23/17 Blood Pressure Location Lt popliteal 11/23/17 Blood Pressure Position Sitting Intake Visit Reasons: 3 M FU Coder Operator Required: No Accompanied by: Family / Other Is patient in pain?: No Allergies hay fever Allergy (Severe, Uncoded 11/23/17 13:10) Unknown poison faith Allergy (Severe, Uncoded 11/23/17 13:10) Unknown Medications aspirin 81 mg tablet,delayed release 81 mg PO QDAY 07/18/17 [History Confirmed 11/23/17] losartan 50 mg tablet 50 mg PO QDAY 07/18/17 [History Confirmed 11/23/17] metformin ER 500 mg tablet,extended release 24 hr 1,000 mg PO BID tab 07/18/17 [History Confirmed 11/23/17] methylcellulose (laxative) 500 mg tablet 500 mg PO QDAY tab 07/18/17 [History Confirmed 11/23/17] albuterol sulfate HFA 90 mcg/actuation aerosol inhaler See Label Instructions INHALATION Q4H PRN g 08/03/17 [History Confirmed 11/23/17] cetirizine 10 mg capsule 10 mg PO QDAY 08/03/17 [History Confirmed 11/23/17] cholecalciferol (vitamin D3) 5,000 unit capsule 5,000 unit PO QDAY 01/31/18 [History Confirmed 11/23/17] colesevelam 625 mg tablet 1,250 mg PO BID #360 tab 08/03/17 [Rx Confirmed 11/23/17] thyroid (pork) 65 mg tablet 65 mg PO QDAY #90 tab 08/03/17 [Rx Confirmed 11/23/17] glyburide 5 mg tablet 10 mg PO BID tab 11/23/17 [History Confirmed 11/23/17] levothyroxine 100 mcg capsule 100 mcg PO QDAY #60 cap 11/23/17 [Rx Confirmed 11/23/17] lisinopril 20 mg tablet 20 mg PO QDAY #30 tab 11/23/17 [Rx Confirmed 11/23/17] lovastatin 20 mg tablet 20 mg PO QPM #30 tab 11/23/17 [Rx Confirmed 11/23/17] Is last menstrual period known: No Patient : No PFSH Medical History Anemia (Acute) Back problem (Acute) Bone fracture (Acute) Breast lump (Acute) Chronic bronchitis (Acute) Depression (Acute) Diabetes type 2, controlled (Acute) Gallstones (Acute) High cholesterol (Acute) Pneumonia (Acute) Seasonal allergies (Acute) UTI (urinary tract infection) (Acute) Vision problems (Acute) Surgical History H/O colonoscopy (Acute) Hx of cholecystectomy (Acute) S/P lumpectomy, left breast (Acute) Family History Mother Arthritis High cholesterol Thyroid disorder Melanoma Hypertension Father Cancer Brother Arthritis Unknown Cancer Heart disease Hypertension High cholesterol Melanoma Social History Smoking Status: Never smoker second hand exposure: No alcohol intake: never substance use type: does not use ROS Const Constitutional: No anorexia, body ache, chills, fatigue, fever(s), frequent falls, decreased energy, malaise, night sweats, weakness, weight change, sleep problems, abnormal sleep pattern, change in appetite, other, headache(s), snoring or excessive sweating Eyes Eyes: Positive for change in vision (borderline glaucoma); no blurry vision, double vision, discharge, dry eyes, bulging eyes, floaters, visual disturbances, eye pain, light sensitivity, spots in vision, tunnel vision or other ENT ENT: Positive for nasal discharge; no abnormal hearing, ear pain, ear discharge, ear pressure, hearing loss, tinnitus, dizziness/vertigo, balance problems, nosebleed/epistaxis, nasal congestion, nasal obstruction, nose pain, sinus pressure, sinus pain, post nasal drip, headache(s), facial pain, dental pain, dry mouth, bad breath, hoarseness, lip swelling, mouth lesions, mouth pain, sore throat, tongue swelling, throat swelling, other, difficulty swallowing or neck pain Resp Respiratory: No cough, change in phlegm color, chest congestion, excessive phlegm production, hemoptysis, pain on inspiration, shortness of breath, pain with cough, snoring, stridor, wheezing or other Cardio Cardiology: No chest pain at rest, chest pain with exertion, leg pain with exertion, excessive sweating, shortness of breath, dyspnea on exertion, generalized swelling, irregular heart rhythm, lightheadedness, orthopnea, radiating jaw, neck or arm pain, fast heart rate, slow heart rate, palpitations or other Gastro GI: No abdominal pain, belching, bloating, change in bowel habits, change in stool character, coffee ground emesis, constipation, cramping, diarrhea, heartburn, difficulty swallowing, feeling full early, excessive flatus, incontinent of stools, Vomiting blood/hematemesis, blood in stool, loose stools, Black,tarry stools, nausea/dyspepsia, pain with swallowing, vomiting or other Genitourinary-Female: No difficulty urinating, burning urination, painful urination, urinary incontinence, urinary frequency, urinary urgency, urinary hesitancy, urinary retention, blood in urine, Frequent nighttime urination/ nocturia, post void dribbling, suprapubic fullness, side pain, sexual problems, genital lesions, genital itching, hot flashes, abnormal periods, abnormal vaginal bleeding, absent period, painful periods, light periods, heavy periods, difficulty getting , painful intercourse, pelvic pain, vaginal dryness, vaginal odor, Vaginal Itching or other Musc Musculoskeletal: No abnormal walking, joint pain, back pain, deformity, joint swelling, limited range of motion, loss of height, muscle cramps, muscle weakness, decreased muscle mass, body aches, neck pain, numbness, radiating pain into limb, stiffness, tingling or other Skin Skin: Positive for hair loss; no acne, change in hair, nail changes, boil, change in skin color, dry skin, redness, excessive hair growth, yellowing of the skin, lesions, itching, rash, skin pain, skin ulcer, sores, skin swelling, wounds or other Breast Breast: No other Neuro Neurology: No frequent falls, weakness, abnormal hearing, headache(s), abnormal walking, numbness, tingling or visual disturbances Psych Psychiatric: No abnormal sleep pattern, No change in appetite Endo Endocrine: No fatigue, other or excessive sweating Aller/Imm Allergy/Immunologic: No lip swelling, tongue swelling, throat swelling, wheezing or itchy eyes Assessment AND Plan Problems 1. Uncontrolled type 2 diabetes mellitus without complication, without long-term current use of insulin E11.65 2. Hypothyroidism (acquired) E03.9 3. Hyperlipidemia associated with type 2 diabetes mellitus E11.69; E78.5 Medications New: Changed: Discontinued: Plan Detail Additional Comments 1. Please schedule follow up in 3 months. 2. Lab work one week before appointment. 3. Discussed importance of regular exercise and recommend starting or continuing a regular exercise program for good health. 4. The patient was encouraged to lose weight for good health 5. The importance of monitoring blood sugar regularly was reviewed. 6. The importance of monitoring the HBA1c level regularly was reviewed. 7. The importance of prper foot care and regularly checking feet to prevent sores and loss of limbs was reviewed. 8. The importance of keeping BP at or below 130/80 to prevent stroke, heart attacks, kidney failure, blindness was reviewed. Spent approximately 30 minutes with patient with over 50% of time spent in discussion and counseling regarding medication adjustment, symptoms and treatment of hypoglycemia, diet adherence, and checking BG before driving. Coding Level of Care Code Off vis,est,level 4 Diagnoses Uncontrolled type 2 diabetes mellitus without complication, without long-term current use of insulin E11.65 Hypothyroidism (acquired) E03.9 Hyperlipidemia associated with type 2 diabetes mellitus E11.69; E78.5 Time Spent (min) 30 11/23/17 0086 <Electronically signed by María HINOJOSA> Date María Westoner Signature: Date (if applicable) CC: HEMOGLOBIN A1C Collected: 11/18/2017 Status: F Source: [place] 10:49 AM [facility] [place] TYPE CODE TESTS RESULT OUT OF RANGE REFERENCE UNITS LAB L501.9985 4.2-6.3 % High HGB A1C 7.8 Performed By: #### L501.9985, L500.4050, L500.4100, L501.9520, L506.0400 #### [facility] [address] [place], [place], [address] COMPREHENSIVE METABOLIC Collected: 11/18/2017 Status: F Source: [facility] 10:49 AM [facility] [place] TYPE CODE TESTS RESULT OUT OF RANGE REFERENCE UNITS LAB L501.0100 74-106 mg/dL High GLU 172 Result Comment: Fasting Glucose result greater than or equal to 126 mg/dL suggests DIABETES MELLITUS per A.D.A. criteria. Please note revised GLUCOSE reference range effective 2017. LAB L501.1000 7-18 mg/dL Normal BUN 12 LAB L501.1100 0.55-1.02 mg/dL Normal CREAT,SERUM 0.91 Result Comment: The validity of the calculated GFR AND GFRAA in patients over 70 years has not been determined. Clinical correlation is essential. LAB L501.1110 >60 mL/min Normal EST GFR 69 Result Comment: Non- GFR Calc LAB L501.1115 >60 mL/min Normal EST GFR - AA 83 Result Comment: GFR Calc LAB L501.1300 10-20 RATIO Normal BUN/CRE 13.2 LAB L501.1500 6.4-8.2 g/dL T Normal PROT 7.7 LAB L501.1800 3.2-5.0 g/dL Normal ALB 3.9 LAB L501.1950 2.2-4.2 g/dL Normal GLOB 3.8 LAB L501.2000 0.9-2.4 RATIO Normal A/G 1.0 LAB L501.2200 8.5-10.1 mg/dL CA Normal 8.8 LAB L501.4100 15-37 U/L High AST 63 LAB L501.4305 45-117 U/L Normal ALK P 97 LAB L501.4405 13-56 U/L Normal ALT 48 LAB L501.4600 0.20-1.00 mg/dL T Normal BILI 0.50 LAB L501.5300 136-145 mmol/L NA Normal 139 LAB L501.5600 3.5-5.1 mmol/L K Normal 4.2 LAB L501.5900 98-107 mmol/L CL Normal 107 LAB L501.6100 21.0-32.0 mmol/L Normal CO2 24.0 LAB L501.6200 5-15 Normal GAP 8 Performed By: #### L501.9985, L500.4050, L500.4100, L501.9520, L506.0400 #### [facility] [address], [place], [id number] LIPID PROFILE Collected: 11/18/2017 Status: F Source: [place]LE[place] 10:49 AM [facility] [place] TYPE CODE TESTS RESULT OUT OF RANGE REFERENCE UNITS LAB L501.4900 200 mg/dL Normal CHOL 125 Result Comment: <200 mg/dL Desirable 200-240 mg/dL Borderline >240 mg/dL High Risk LAB L501.5000 mg/dL Normal TRIG 91 Result Comment: The drugs N-Acetylcysteine and Metamizole may falsely depress this assay. Serum Triglycerides Reference Interval Normal <150 mg/dL Borderline high 150 - 199 mg/dL High 200 - 499 mg/dL Very High > or = 500 mg/dL LAB L501.6400 mg/dL Normal HDL 40 Result Comment: The drugs N-Acetylcysteine and Metamizole may falsely depress this assay. Reference Range HDL <40 mg/dL Low HDL Cholesterol HDL >or= 60 mg/dL High HDL Cholesterol LAB L501.6500 0-130 mg/dL Normal LDL 67 LAB L501.6600 5-40 mg/dL Normal VLDL 18 Performed By: #### L501.9985, L500.4050, L500.4100, L501.9520, L506.0400 #### [facility] [address] [place], [place], [id number] THYROID STIM HORMONE Collected: 11/18/2017 Status: F Source: FINN (TSH) 10:49 AM [facility] [place] TYPE CODE TESTS RESULT OUT OF RANGE REFERENCE UNITS LAB L501.9520 0.358-3.74 uIU/mL Normal TSH 2.16 Performed By: #### L501.9985, L500.4050, L500.4100, L501.9520, L506.0400 #### [facility] [address] [place], [address] T4 FREE DIRECT Collected: 11/18/2017 Status: F Source: FINN 10:49 AM [facility] [place] TYPE CODE TESTS RESULT OUT OF RANGE REFERENCE UNITS LAB L506.0400 0.76-1.46 ng/dL Normal T4 FREE 0.93 DIRECT Performed By: #### L501.9985, L500.4050, L500.4100, L501.9520, L506.0400 #### [facility] [address] [place], [address] MICROALB:CREAT Collected: 11/18/2017 Status: F Source: FINN RATIO,RANDOM UR 10:49 AM [facility] [place] TYPE CODE TESTS RESULT OUT OF RANGE REFERENCE UNITS LAB L501.1200 NO RANGE EST. mg/dL Normal UR CREAT 139.00 LAB L502.0500 NO RANGE EST. mg/L Normal 6.4 MICROALBUMIN ,UR LAB L502.0600 <30 mg/g CRE mg/g CRE Normal 4.6 MALB:CREAT Performed By: #### L502.0250 #### [facility] [address] [place], [address] URGENT CARE VISIT Observed: 08/20/2017 Status: F Source: FINN REPORT 12:56 PM [facility] [place] [address] [place] [address] OFFICE VISIT Date of Service: 08/20/17 MR#: [id number] Acct: [id number] Name: GEOVANNA DOMINGUEZ Rep #: [id number] : 1965 Provider: Angeles Mir Age/Sex: 52/F Location[place] [facility] Status: Signed Intake Vital Signs08/20/17 Height 5 ft 7.5 in Intake Visit Reasons: FLU Chief Complaint: sinus pressure and ear pain Is patient in pain?: No Allergies hay fever Allergy (Severe, Uncoded 08/20/17 11:41) Unknown poison faith Allergy (Severe, Uncoded 08/20/17 11:41) Unknown Medications aspirin 81 mg tablet,delayed release 81 mg PO QDAY 07/18/17 [History Confirmed 08/20/17] citalopram 10 mg tablet 10 mg PO QDAY 07/18/17 [History Confirmed 08/20/17] losartan 50 mg tablet 50 mg PO QDAY 07/18/17 [History Confirmed 08/20/17] metformin ER 500 mg tablet,extended release 24 hr 1,000 mg PO BID tab 07/18/17 [History Confirmed 08/20/17] methylcellulose (laxative) 500 mg tablet 500 mg PO QDAY tab 07/18/17 [History Confirmed 08/20/17] simvastatin 40 mg tablet 40 mg PO QAM 07/18/17 [History Confirmed 08/20/17] albuterol sulfate HFA 90 mcg/actuation aerosol inhaler See Label Instructions INHALATION Q4H PRN g 08/03/17 [History Confirmed 08/20/17] cetirizine 10 mg capsule 10 mg PO QDAY 08/03/17 [History Confirmed 08/20/17] cholecalciferol (vitamin D3) 5,000 unit capsule 5,000 unit PO QDAY 08/03/17 [History Confirmed 08/20/17] colesevelam 625 mg tablet 1,250 mg PO BID #360 tab 08/03/17 [Rx Confirmed 08/20/17] colesevelam 625 mg tablet 1,875 mg PO BID tab 08/03/17 [History Confirmed 08/20/17] glyburide 5 mg tablet 5 mg PO BID tab 08/03/17 [History Confirmed 08/20/17] thyroid (pork) 65 mg tablet 65 mg PO QDAY #90 tab 08/03/17 [Rx Confirmed 08/20/17] doxycycline hyclate 100 mg capsule 100 mg PO BID #28 cap 08/11/17 [Rx Confirmed 08/20/17] oseltamivir 75 mg capsule 75 mg PO BID 5 Days #10 cap 08/20/17 [Rx Confirmed 08/20/17] promethazine 25 mg tablet 25 mg PO Q6H PRN #30 tab 08/20/17 [Rx Confirmed 08/20/17] PFSH Medical History Anemia (Acute) Back problem (Acute) Bone fracture (Acute) Breast lump (Acute) Chronic bronchitis (Acute) Depression (Acute) Diabetes type 2, controlled (Acute) Gallstones (Acute) High cholesterol (Acute) Pneumonia (Acute) Seasonal allergies (Acute) UTI (urinary tract infection) (Acute) Vision problems (Acute) Surgical History H/O colonoscopy (Acute) Hx of cholecystectomy (Acute) S/P lumpectomy, left breast (Acute) Family History Mother Arthritis High cholesterol Thyroid disorder Melanoma Hypertension Father Cancer Brother Arthritis Unknown Cancer Heart disease Hypertension High cholesterol Melanoma Social History Smoking Status: Never smoker second hand exposure: No alcohol intake: never substance use type: does not use HPI HPI Chief Complaint: sinus pressure and ear pain Details: GEOVANNA DOMINGUEZ, is a 52 F who presents to the office today for her an acute visit. Patient states that her symptoms started Th evening where she had fevers, chills body aches. She is also at the end of being treated for a sinus infection. Tylenol and Advil has helped some but with minimal relief. Patient has also had nausea and vomiting. She has not vomited today. She did vomit night into Tuesday morning. ROS Const Constitutional: Positive for body ache, chills, fatigue, fever(s) and headache(s) Eyes Eyes: No discharge ENT ENT: Positive for nasal discharge, post nasal drip, sinus pressure and headache(s); no ear pain or tinnitus Resp Respiratory: No cough Cardio Cardiology: No chest pain at rest or chest pain with exertion Gastro GI: Positive for vomiting and nausea/dyspepsia Neuro Neurology: Positive for headache(s) Endo Endocrine: Positive for fatigue Exam Const General: cooperative, no acute distress, ill appearing Nutritional Appearance: obese HENMT Head: normal to inspection, normocephalic Ears: TM's normal bilaterally Nose: nasal mucous membranes and turbinates normal Face and sinus: sinuses nontender Mouth: moist mucous membranes Eyes Eyelids: eyelids normal Conjunctivae: conjunctivae normal Sclera: sclerae normal Cornea: corneas normal Pupils: PERRL Neck Neck: no lymphadenopathy Chest Chest palpation AND inspection: normal inspection of the chest Resp Effort AND Inspection: normal respiratory effort Auscultation: Bilateral: Clear to Auscultation Cardio Palpation: normal PMI Rhythm: regular rhythm Heart Sounds: S1 normal, S2 normal GI Inspection: normal to inspection Auscultation: normal bowel sounds Percussion: normal to percussion Palpation: soft, no hepatosplenomegaly Neuro General: alert, oriented x3, CN's II-XI intact bilaterally Results BMSFLUAB Office Flu A AND B Pos FLU A AND Neg FLU B Last Edit by Lisset Waddell on 08/20/17 11:44 Assessment AND Plan Problems 1. Influenza A J10.1 2. Fever, unspecified fever cause R50.9 3. Nausea R11.0 Plan Patient was influenza A positive. Tamiflu was given. For her nausea she is given Phenergan. She was advised to treat her symptoms with Tylenol and Advil and adequate fluid hydration and rest. She was advised that if she is not feeling any better in approximately 1 week or if her symptoms get worse that she should see her primary care doctor. Orders Orders: Medications New: Coding Level of Care Code Off vis,new,level 3 Diagnoses Influenza A J10.1 Fever, unspecified fever cause R50.9 Fever type: unspecified Nausea R11.0 08/20/17 1256 <Electronically signed by Angeles TORIBIO> Date Angeles TORIBIO Cosigner Signature: Date (if applicable) CC: CBC W/DIFF, AUTOMATED Collected: 08/18/2017 Status: F Source: FINN 4:48 PM [facility] [place] TYPE CODE TESTS RESULT OUT OF RANGE REFERENCE UNITS LAB L100.1000 4.4-11.0 K/mm3 Normal WBC 6.4 LAB L100.1200 4.2-5.4 M/mm3 Normal RBC 4.44 LAB L100.1300 12.0-15.0 g/dl Normal HGB 13.1 LAB L100.1400 37-47 % Normal HCT 39.7 LAB L100.1500 81-99 fL Normal MCV 89.4 LAB L100.1600 27.0-32.0 pg Normal MCH 29.5 LAB L100.1700 32-36 g/gl Normal MCHC 33.0 LAB L100.1810 11.6-14.6 % Normal RDW CV 14.3 LAB L100.1820 35.1-43.9 fl High RDW SD 44.7 LAB L100.1900 150-450 K/mm3 Normal PLT 213 LAB L100.2000 6.2-12.0 fl Normal MPV 9.4 LAB L100.2100 47-70 % High NEUT% 75.8 LAB L100.2200 19-41 % Low LY% 11.9 LAB L100.2300 0-10 % Normal MONO% 6.8 LAB L100.2400 0-5 % Normal EO% 4.4 LAB L100.2500 0-1 % Normal BASO% 0.3 LAB L100.2550 0.0-0.9 % Normal IM GRAN % 0.800 Result Comment: IG% - Immature Granulocytes (promyelocytes, myelocytes and metamyelocytes) > 1% indicates that a LEFT SHIFT is Present. LAB L100.2620 2.0-7.7 X10 3/uL Normal Absolute Neut 4.8 LAB L100.2720 0.83-4.51 X10 3/ul Low Absolute Lymph 0.76 Performed By: #### L100.0100 #### [facility] [address] [place] [address]. [place], [place], [address] CHEST PA AND LATERAL Observed: 08/18/2017 Status: F Source: [place] 4:39 PM [facility] [place] [facility] Imaging Services [address] [place] [address] Chest PA and Lateral MR#: [id number] Acct: [id number] Name: GEOVANNA DOMINGUEZ #: [id number] : 1965 F 52 From: Benito Islas MD PCP: Shaq Hamilton DO Status: REG CLI Study: Chest PA and Lateral Date of Exam: 08/18/17 Exam# [id number] Ordering Dr: Shaq Hamilton DO STUDY: X-RAY CHEST REASON FOR EXAM: Female, 52 years old. Cough TECHNIQUE: Frontal and lateral views of the chest. COMPARISON: None. FINDINGS: The lungs are clear and expanded. There is no demonstrated pleural abnormality. Normal size heart. Normal mediastinum and phuong. Normal visualized pulmonary arteries. Normal visualized aortic arch and descending thoracic aorta. Normal visualized thoracic spine. Normal visualized ribs, clavicles, and shoulders. There is no demonstrated abnormality of the visualized soft tissue structures of the upper abdomen. RAD/Chest PA and Lateral IMPRESSION: Normal x-ray examination of the chest. Electronically Signed: Benito Islas MD at 23:59 EST , Service support , CC: Shaq Hamilton DO Wood Technologist: Signed URGENT CARE VISIT Observed: 08/11/2017 Status: F Source: KILLEEN REPORT 9:31 AM [facility] [place] [address] OFFICE VISIT Date of Service: 08/11/17 MR#: [id number] Acct: [id number] Name: GEOVANNA DOMINGUEZ Rep #: [id number] : 1965 Provider: Sukumar TORIBIO Age/Sex: 52/F Location: [facility] Status: Signed Intake Intake Visit Reasons: SINUS INFECTION Chief Complaint: sinus pressure and ear pain Allergies hay fever Allergy (Severe, Uncoded 08/03/17 09:58) Unknown poison faith Allergy (Severe, Uncoded 08/03/17 09:58) Unknown Medications aspirin 81 mg tablet,delayed release 81 mg PO QDAY 07/18/17 [History Confirmed 08/03/17] citalopram 10 mg tablet 10 mg PO QDAY 07/18/17 [History Confirmed 08/03/17] losartan 50 mg tablet 50 mg PO QDAY 07/18/17 [History Confirmed 08/03/17] metformin ER 500 mg tablet,extended release 24 hr 1,000 mg PO BID tab 07/18/17 [History Confirmed 08/03/17] methylcellulose (laxative) 500 mg tablet 500 mg PO QDAY tab 07/18/17 [History Confirmed 08/03/17] simvastatin 40 mg tablet 40 mg PO QAM 07/18/17 [History Confirmed 08/03/17] albuterol sulfate HFA 90 mcg/actuation aerosol inhaler See Label Instructions INHALATION Q4H PRN g 08/03/17 [History Confirmed 08/03/17] cetirizine 10 mg capsule 10 mg PO QDAY 08/03/17 [History Confirmed 08/03/17] cholecalciferol (vitamin D3) 5,000 unit capsule 5,000 unit PO QDAY 08/03/17 [History Confirmed 08/03/17] colesevelam 625 mg tablet 1,250 mg PO BID #360 tab 08/03/17 [Rx Confirmed 08/03/17] colesevelam 625 mg tablet 1,875 mg PO BID tab 08/03/17 [History Confirmed 08/03/17] glyburide 5 mg tablet 5 mg PO BID tab 08/03/17 [History Confirmed 08/03/17] thyroid (pork) 65 mg tablet 65 mg PO QDAY #90 tab 08/03/17 [Rx Confirmed 08/03/17] doxycycline hyclate 100 mg capsule 100 mg PO BID #28 cap 08/11/17 [Rx Confirmed 08/11/17] PFSH Medical History Anemia (Acute) Back problem (Acute) Bone fracture (Acute) Breast lump (Acute) Chronic bronchitis (Acute) Depression (Acute) Diabetes type 2, controlled (Acute) Gallstones (Acute) High cholesterol (Acute) Pneumonia (Acute) Seasonal allergies (Acute) UTI (urinary tract infection) (Acute) Vision problems (Acute) Surgical History H/O colonoscopy (Acute) Hx of cholecystectomy (Acute) S/P lumpectomy, left breast (Acute) Family History Mother Arthritis High cholesterol Thyroid disorder Melanoma Hypertension Father Cancer Brother Arthritis Unknown Cancer Heart disease Hypertension High cholesterol Melanoma Social History Smoking Status: Never smoker second hand exposure: No alcohol intake: never substance use type: does not use HPI HPI Chief Complaint: sinus pressure and ear pain Details: GEOVANNA DOMINGUEZ, is a 52 F who presents to the office today for approximately 2 month history of progressively worsening sinus pressure and left ear discomfort. Patient notes occasional fever and chills. Patient notes having been diagnosed with influenza approximately 1 month ago, where she was treated by her pcp at that time. She notes her pain is aggravated to touch left facial region and with bending forward, alleviated by nothing. She is a non-smoker. No other associated symptoms and no other alleviating or aggravating factors. ROS Const Constitutional: Positive for chills; no excessive sweating, abnormal sleep pattern, fever(s), night sweats or body ache Eyes Eyes: No change in vision ENT ENT: Positive for ear pain, ear pressure, post nasal drip and sinus pressure; no abnormal hearing, ear discharge or hearing loss Resp Respiratory: No cough or chest congestion Cardio Cardiology: No excessive sweating, chest pain at rest, chest pain with exertion, shortness of breath, dyspnea on exertion, irregular heart rhythm, generalized swelling or leg pain with exertion Gastro GI: No abdominal pain, change in stool character or change in bowel habits Musc Musculoskeletal: No joint pain, back pain or limited range of motion Skin Skin: No change in hair or sores Neuro Neurology: No abnormal hearing, abnormal speech or abnormal movements Psych Psychiatric: No abnormal sleep pattern Endo Endocrine: No excessive sweating, change in body appearance, cold intolerance or heat intolerance Aller/Imm Allergy/Immunologic: No food intolerance Mickey/Lymp Hematologic/Lymphatic: No easy bruising Exam Const General: cooperative, healthy appearing, no acute distress, uncomfortable Nutritional Appearance: average body habitus Orientation: alert, awake, oriented x3 HENMT Head: normal to inspection Ears: hearing grossly normal bilaterally, external ears normal, EAC's normal, TM normal on the right, left TM abnormal (Bulging and pearly appearance) Nose: external nose normal, nares normal, septum normal, no nasal discharge Face and sinus: normal facial exam, sinus tenderness, face symmetric Mouth: oral mucosae normal, lip normal, oropharynx normal, tongue normal Teeth and gingiva: dentition normal, gingiva normal Throat: uvula midline, posterior oropharynx normal, tonsils normal, postnasal drainage (Purulent) Eyes General: appearance normal, both eyes and all related structures Neck Neck: normal visual inspection, full ROM, no meningeal signs, supple, lymphadenopathy (Bilateral anterior cervical node swelling and tenderness to palpation) Neck mass: No Thyroid: thyroid normal Lymphatic: no lymphadenopathy noted Chest Chest palpation AND inspection: normal inspection of the chest Resp Effort AND Inspection: normal respiratory effort, able to speak in complete sentences, symmetric chest movement, no cough Auscultation: Bilateral: Clear to Auscultation Cardio Palpation: normal PMI Rate: regular rate Rhythm: regular rhythm Heart Sounds: S1 normal, S2 normal, no gallops, no murmurs, no rubs Pulses: radial pulses present GI Inspection: normal to inspection Palpation: soft, no hepatosplenomegaly Skin General: no rashes or lesions noted Neuro General: alert, awake, oriented x3, gait normal Cognition: normal cognition Speech: speech normal Gait: normal gait Motor: muscle tone normal throughout Sensory Exam: no sensory deficits noted Extrem General: normal to inspection Psych Appearance: grossly normal Mental Status: mental status grossly normal Mood: congruent mood Affect: normal affect Speech and Movement: speech and movement normal Attitude: cooperative Thought Process: normal Thought Content: normal Judgment: judgment good Assessment AND Plan Problems 1. Otitis media H66.90 2. Sinusitis J32.9 Plan Doxycycline as prescribed today. Clear fluids, rest, Tylenol, facial compresses as needed as instructed today. Follow-up with PCP in 3-5 days should symptoms not improved, sooner should symptoms worsen or any other concerns develop. Patient states knowledge and understanding all the above This note was generated with Hyperpotation software. It may contain incorrect words, spelling, and punctuation that were not noted in checking the note before signing. Medications New: doxycycline hyclate please inform pt levaquin is contraindicated for [id number] mg PO BID due to citalopram prescription she is already on Coding Level of Care Code Off vis,est,level 4 Diagnoses Otitis media H66.90 Sinusitis J32.9 08/11/17 0931 <Electronically signed by Sukumar TORIBIO> Date Sukumar Alexander Signature: Date (if applicable) CC: ENDOCRINOLOGY VISIT Observed: 08/03/2017 Status: F Source: [place] REPORT 11:34 AM [facility] [place] [address] [place] [address] OFFICE VISIT Date of Service: 08/03/17 MR#: [id number] Acct: [id number] Name: GEOVANNA DOMINGUEZ Rep #: [id number] : 1965 Provider: María Marrero NP Age/Sex: 52/F [place] [facility] [place]: Signed HPI History of present illness Geovanna Dominguez is a 52 year old female who presents for follow up of diabetes type 2. Diagnosed in 2009. Continues on glyburide, metformin. A1c was 6.9 in the summer and is currently 7.5 . Currently has a URI. At time of visit: -Pt denies symptoms of hypertensive emergency (CP,SOB,WEEKS, or blurred vision) and hypotension(dizziness or lightheadedness) -Pt denies symptoms of hypoglycemia ( sweaty, confusion, anxiety, tremor, hunger, palpitations) and hyperglycemia ( polydipsia, polyuria) -Pt denies potential medication adverse effect. Hypoglycemia Aware of hypoglycemia: Yes Able to self treat low BG: Yes Frequent low Blood sugar: No Has supply of glucagon: No Diet Breakfast is dried fruit and yogurt Lunch is usually left overs. Dinner is meat,potatoe and vegetables. Weight and fatigue symptoms: Denies snoring Cardiopulmonary symptoms: Denies chest pain at rest, dyspnea on exertion, lightheadedness or myalgias GI symptoms: Denies constipation, diarrhea, nausea/dyspepsia or vomiting Other symptoms: Denies blurry vision or change in vision Pertinent visit history: Denies recent 911 calls or recent visit to ER Self monitoring: Yes Exam Const General: comfortable, ill appearing, well groomed Nutritional Appearance: overweight Orientation: oriented x3 HENMT Head: normal to inspection, atraumatic Ears: hearing grossly normal bilaterally Nose: nasal discharge Mouth: oral mucosae normal, moist mucous membranes Teeth and gingiva: dentition normal Eyes General: appearance normal, both eyes and all related structures Eyelids: eyelids normal Conjunctivae: conjunctivae normal Pupils: PERRL Neck Neck: normal visual inspection Neck mass: No Chest Chest palpation AND inspection: deferred Resp Effort AND Inspection: normal respiratory effort, able to speak in complete sentences, symmetric chest movement, cough Cardio Rate: regular rate Rhythm: regular rhythm Heart Sounds: S1 normal, S2 normal GI Inspection: normal to inspection Auscultation: normal bowel sounds Palpation: soft, no guarding General: deferred Skin General: no rashes or lesions noted Wounds: no wounds Diabetic Foot Pulses: L dorsalis pedis pulse: normal, R dorsalis pedis pulse: normal Monofilament test: Left foot: normal, Right foot: normal Neuro General: gait normal, normal light touch, pain and propioception Cognition: normal cognition Speech: speech normal Gait: normal gait Extrem General: normal to inspection, no pedal edema Psych Appearance: well kempt Mental Status: mental status grossly normal Mood: congruent mood Speech and Movement: speech and movement normal Thought Process: normal Thought Content: normal Judgment: judgment good Intake Vital Signs08/03/17 Height 5 ft 7.5 in 08/03/17 Weight: 286 lb 08/03/17 Body Mass Index (BMI) 44.1 08/03/17 Blood Pressure 128/84 08/03/17 Blood Pressure Location Lt popliteal 08/03/17 Blood Pressure Position Sitting Intake Visit Reasons: 3 M Coder Operator Required: No Accompanied by: Son Is patient in pain?: No Allergies hay fever Allergy (Severe, Uncoded 08/03/17 09:58) Unknown poison faith Allergy (Severe, Uncoded 08/03/17 09:58) Unknown Medications aspirin 81 mg tablet,delayed release 81 mg PO QDAY 07/18/17 [History Confirmed 08/03/17] citalopram 10 mg tablet 10 mg PO QDAY 07/18/17 [History Confirmed 08/03/17] losartan 50 mg tablet 50 mg PO QDAY 07/18/17 [History Confirmed 08/03/17] metformin ER 500 mg tablet,extended release 24 hr 1,000 mg PO BID tab 07/18/17 [History Confirmed 08/03/17] methylcellulose (laxative) 500 mg tablet 500 mg PO QDAY tab 07/18/17 [History Confirmed 08/03/17] simvastatin 40 mg tablet 40 mg PO QAM 07/18/17 [History Confirmed 08/03/17] albuterol sulfate HFA 90 mcg/actuation aerosol inhaler See Label Instructions INHALATION Q4H PRN g 08/03/17 [History Confirmed 08/03/17] cetirizine 10 mg capsule 10 mg PO QDAY 08/03/17 [History Confirmed 08/03/17] cholecalciferol (vitamin D3) 5,000 unit capsule 5,000 unit PO QDAY 08/03/17 [History Confirmed 08/03/17] colesevelam 625 mg tablet 1,250 mg PO BID #360 tab 08/03/17 [Rx Confirmed 08/03/17] colesevelam 625 mg tablet 1,875 mg PO BID tab 08/03/17 [History Confirmed 08/03/17] glyburide 5 mg tablet 5 mg PO BID tab 08/03/17 [History Confirmed 08/03/17] thyroid (pork) 65 mg tablet 65 mg PO QDAY #90 tab 08/03/17 [Rx Confirmed 08/03/17] Is last menstrual period known: No Patient : No Nurse's Note: diabetes type 2 dx :2009 last exacerbation : dka :never hypoglycemic episode : never er visit : never blood sugars : low : [facility] : [facility] Medical History Anemia (Acute) Back problem (Acute) Bone fracture (Acute) Breast lump (Acute) Chronic bronchitis (Acute) Depression (Acute) Diabetes type 2, controlled (Acute) Gallstones (Acute) High cholesterol (Acute) Pneumonia (Acute) Seasonal allergies (Acute) UTI (urinary tract infection) (Acute) Vision problems (Acute) Surgical History H/O colonoscopy (Acute) Hx of cholecystectomy (Acute) S/P lumpectomy, left breast (Acute) Family History Mother Arthritis High cholesterol Thyroid disorder Melanoma Hypertension Father Cancer Brother Arthritis Unknown Cancer Heart disease Hypertension High cholesterol Melanoma Social History Smoking Status: Never smoker second hand exposure: No alcohol intake: never substance use type: does not use ROS Const Constitutional: Positive for body ache, fever(s), night sweats and fatigue; no anorexia, chills, decreased energy, malaise, weight change, sleep problems, other, frequent falls, weakness, headache(s), abnormal sleep pattern, change in appetite, excessive sweating or snoring Eyes Eyes: No double vision, discharge, dry eyes, bulging eyes, floaters, eye pain, light sensitivity, spots in vision, tunnel vision, other, visual disturbances, blurry vision or change in vision ENT ENT: Positive for nasal congestion, sinus pressure, nasal discharge and post nasal drip; no ear pain, ear discharge, ear pressure, hearing loss, tinnitus, dizziness/vertigo, balance problems, nosebleed/epistaxis, nasal obstruction, nose pain, sinus pain, facial pain, dental pain, dry mouth, bad breath, hoarseness, mouth lesions, mouth pain, sore throat, difficulty swallowing, neck pain, abnormal hearing, headache(s), other, lip swelling, tongue swelling or throat swelling Resp Respiratory: Positive for cough, shortness of breath and wheezing; no change in phlegm color, chest congestion, excessive phlegm production, hemoptysis, pain on inspiration, pain with cough, stridor, other or snoring Cardio Cardiology: No chest pain with exertion, leg pain with exertion, shortness of breath, generalized swelling, irregular heart rhythm, orthopnea, radiating jaw, neck or arm pain, fast heart rate, slow heart rate, palpitations, other, excessive sweating, chest pain at rest, dyspnea on exertion or lightheadedness Gastro GI: No abdominal pain, belching, bloating, change in bowel habits, change in stool character, coffee ground emesis, cramping, heartburn, difficulty swallowing, feeling full early, excessive flatus, incontinent of stools, Vomiting blood/hematemesis, blood in stool, loose stools, Black,tarry stools, pain with swallowing, other, constipation, diarrhea, nausea/dyspepsia or vomiting Genitourinary-Female: No difficulty urinating, burning urination, painful urination, urinary incontinence, urinary frequency, urinary urgency, urinary hesitancy, urinary retention, blood in urine, Frequent nighttime urination/ nocturia, post void dribbling, suprapubic fullness, side pain, sexual problems, genital lesions, genital itching, hot flashes, abnormal periods, abnormal vaginal bleeding, absent period, painful periods, light periods, heavy periods, difficulty getting , painful intercourse, pelvic pain, vaginal dryness, vaginal odor, Vaginal Itching or other Musc Musculoskeletal: No joint pain, back pain, deformity, joint swelling, limited range of motion, loss of height, muscle cramps, muscle weakness, decreased muscle mass, neck pain, radiating pain into limb, stiffness, other, abnormal walking, numbness, tingling or body aches Neuro Neurology: No frequent falls, weakness, visual disturbances, abnormal hearing, headache(s), abnormal walking, numbness or tingling Psych Psychiatric: No abnormal sleep pattern, No change in appetite Endo Endocrine: Positive for fatigue; no other or excessive sweating Aller/Imm Allergy/Immunologic: Positive for wheezing; no lip swelling, tongue swelling or throat swelling Assessment AND Plan Problems 1. Hypothyroidism (acquired) E03.9 2. Uncontrolled type 2 diabetes mellitus without complication, without long-term current use of insulin E11.65 3. Hyperlipidemia associated with type 2 diabetes mellitus E11.69; E78.5 Plan 1. Please schedule follow up in 3 months. 2. Lab work one week before appointment. 3. Discussed importance of regular exercise and recommend starting or continuing a regular exercise program for good health. 4. The patient was encouraged to lose weight for good health 5. The importance of monitoring blood sugar regularly was reviewed. 6. The importance of monitoring the HBA1c level regularly was reviewed. 7. The importance of proper foot care and regularly checking feet to prevent sores and loss of limbs was reviewed. 8. The importance of keeping BP at or below 130/80 to prevent stroke, heart attacks, kidney failure, blindness was reviewed. Control portions Food selections should be healthy Choose more low carb vegetables Avoid snacks and desserts. Drink water Exercise daily Eat more fresh foods, not canned or processed Eat more slowly Spent approximately 30 minutes with patient with over 50% of time spent in discussion and counseling regarding medication adjustment, symptoms and treatment of hypoglycemia, diet adherence, and checking BG before driving. Orders Orders: Medications New: Coding Level of Care Code Off vis,est,level 4 Diagnoses Hypothyroidism (acquired) E03.9 Uncontrolled type 2 diabetes mellitus without complication, without long-term current use of insulin E11.65 Hyperlipidemia associated with type 2 diabetes mellitus E11.69; E78.5 Time Spent (min) 30 08/03/17 1134 <Electronically signed by María HINOJOSA> Date María HINOJOSA Cosigner Signature: Date (if applicable) CC: HEMOGLOBIN A1C Collected: 07/29/2017 Status: F Source: [place]N 9:11 AM [facility] Order Comment: Order Date: 01/26/17 Order Info: 4548-4 - *HgA1C TYPE CODE TESTS RESULT OUT OF RANGE REFERENCE UNITS LAB L501.9985 4.2-6.3 % High HGB A1C 7.5 Performed By: #### L501.9985 #### [facility] [address] [place], [address] COMPREHENSIVE METABOLIC Collected: 07/29/2017 Status: F Source: FINN RODRIGUEZ 9:11 AM [facility] Order Comment: Order Date: 01/26/17 Order Info: 0786-1 - *CMP Complete Metabolic Panel TYPE CODE TESTS RESULT OUT OF RANGE REFERENCE UNITS LAB L501.0100 70-110 mg/dL High GLU 127 Result Comment: Fasting Glucose result greater than or equal to 126 mg/dL suggests DIABETES MELLITUS per A.D.A. criteria. LAB L501.1000 7-18 mg/dL Normal BUN 17 LAB L501.1100 0.55-1.02 mg/dL Normal CREAT,SERUM 0.80 Result Comment: The validity of the calculated GFR AND GFRAA in patients over 70 years has not been determined. Clinical correlation is essential. LAB L501.1110 >60 mL/min Normal EST GFR 80 Result Comment: Non- GFR Calc LAB L501.1115 >60 mL/min Normal EST GFR - AA 97 Result Comment: GFR Calc LAB L501.1300 10-20 RATIO High BUN/CRE 21.3 LAB L501.1500 6.4-8.2 g/dL T Normal PROT 7.4 LAB L501.1800 3.4-5.0 g/dL Normal ALB 3.8 Result Comment: Please note revised Albumin AND Globulin reference range effective 2017. LAB L501.1950 2.2-4.2 g/dL Normal GLOB 3.6 LAB L501.2000 0.9-2.4 RATIO Normal A/G 1.1 LAB L501.2200 8.5-10.1 mg/dL Normal CA 9.1 LAB L501.4100 15-37 U/L Normal AST 34 LAB L501.4305 45-117 U/L Normal ALK P 85 LAB L501.4405 12-78 U/L Normal ALT 47 LAB L501.4600 0.20-1.00 mg/dL Normal T BILI 0.50 LAB L501.5300 136-145 mmol/L Normal NA 139 LAB L501.5600 3.5-5.1 mmol/L Normal K 3.7 LAB L501.5900 98-107 mmol/L Normal CL 102 LAB L501.6100 21.0-32.0 mmol/L Normal CO2 27.0 LAB L501.6200 5-15 Normal GAP 10 Performed By: #### L500.4050 #### [facility] [address] [place], [place], [address] OBSOLETE Observed: 06/23/2017 Status: COMPLETED Source: ARCHER 12:00 AM [facility] REPOSITORY Refill (ENDOMN) GEOVANNA DOMINGUEZ ([id number]) 1965 F Date Time Provider Department 06/23/17 MINH DE LUNA During your visit today, we recorded the following information about you: Shelldottie Leon [facility] 06/23/2017 12:41 PM Addendum Received a call from the linked pharmacy/last visit 03/18/16/no futures. Please send Rx to them - the Rx Dr. De Luna e-scripted yesterday (metformin ER (GLUMETZA) 1,000 mg tablet - take one tablet by mouth twice daily with meals - 180 tablets 0 refills is extremely expensive. The following approved medication requests have been transmitted electronically. Signed Prescriptions Disp Refills metFORMIN ER (GLUCOPHAGE XR) 500 mg 24 hr tablet 360 tablet 3 Sig: Take two tablets twice a day with meals Authorizing Provider: MINH DE LUNA MD The following approved medication requests have been transmitted electronically. Signed Prescriptions Disp Refills metFORMIN ER (GLUCOPHAGE XR) 500 mg 24 hr tablet 360 tablet 3 Sig: Take two tablets twice a day with meals Authorizing Provider: MINH DE LUNA MD Allergies As of Date: 06/23/2017 Noted Allergy Reaction CODEINE 08/28/2014 11 - Vomiting KEFLEX (CEPHALEXIN) 08/28/2014 11 - Vomiting Date Reviewed: 03/18/2016 Reviewed by: Yessica Galindo MA - Fully Assessed Reason for Visit: Refill Request [94] Primary Visit Diagnosis:Controlled type 2 diabetes mellitus without complication, unspecified parts counterman insulin use status (HCC) [E11.9] Order(s):metFORMIN ER (GLUCOPHAGE XR) 500 mg 24 hr tabletTake two tablets twice a day with mealsDisp: 360 tabletRfl: 3 Prescriptions as of 06/23/2017 Sig: METFORMIN ER 500 MG TABLET,EX* Take two tablets twice a day * METFORMIN ER 1,000 MG 24 HR T* TAKE ONE TABLET BY MOUTH TWIC* WELCHOL 625 MG TABLET TAKE THREE TABLETS BY MOUTH T* METFORMIN ER 1,000 MG 24 HR T* Take 1,000 mg by mouth twice * LINAGLIPTIN 5 MG TABLET Take 5 mg by mouth once daily. COLESEVELAM 625 MG TABLET Take 3 tablets by mouth twice* VITAMIN D-3 ORAL Take by mouth. CALCIUM ORAL Take by mouth. NATURE-THROID 65 MG TABLET HYDROXOCOBALAMIN 1,000 MCG/ML* SIMVASTATIN ORAL Take 40 mg by mouth once ann* ASPIRIN 81 MG CHEWABLE TABLET Take 81 mg by mouth once ann* REFRESH OPTIVE ADVANCED OPHTH* Use 1 Drop in eyes as needed. 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] INVALID FOR* Ocular hypertension [H40.059] INVALID FOR* Vitreous floaters of both eyes [H43.393] INVALID FOR* Prescriptions ordered this encounter Disp Refills Start End METFORMIN ER 500 MG TABLET,EXTENDED * 360 * 3 06/23/2017 Sig: Take two tablets twice a day with meals Encounter Status:Closed by MINH DE LUNA MD on 06/23/17 OBSOLETE Observed: 06/22/2017 Status: COMPLETED Source: RYAN 12:00 AM [facility] REPOSITORY Refill (APRYLN) GEOVANNA DOMINGUEZ ([id number]) 1965 F Date Time Provider Department 06/22/17 MINH DE LUNA During your visit today, we recorded the following information about you: Yessica Galindo Ma 06/22/2017 3:40 PM Addendum Patients last Endocrinology visit occurred 10/27/15. Follow- up evaluation has been established n/a . Pharmacy calls in requesting the following refill(s): Pending Prescriptions Disp Refills METFORMIN ER 1,000 MG 24 HR TABLET,EXTENDED RELEASE 180 tablet 0 Sig: TAKE ONE TABLET BY MOUTH TWICE DAILY WITH MEALS AYAD: Yes The following approved medication requests have been transmitted electronically. Signed Prescriptions Disp Refills metFORMIN ER (GLUMETZA) 1,000 mg 24 hr tablet 180 tablet 0 Sig: TAKE ONE TABLET BY MOUTH TWICE DAILY WITH MEALS AYAD: No Authorizing Provider: MINH DE LUNA MD Allergies As of Date: 06/22/2017 Noted Allergy Reaction CODEINE 08/28/2014 11 - Vomiting KEFLEX (CEPHALEXIN) 08/28/2014 11 - Vomiting Date Reviewed: 03/18/2016 Reviewed by: Yessica Galindo MA - Fully Assessed Reason for Visit: Refill Request [94] Primary Visit Diagnosis:Controlled type 2 diabetes mellitus without complication, unspecified parts counterman insulin use status (HCC) [E11.9] Order(s):metFORMIN ER (GLUMETZA) 1,000 mg 24 hr tabletTAKE ONE TABLET BY MOUTH TWICE DAILY WITH MEALSDisp: 180 tabletRfl: 0 Prescriptions as of 06/22/2017 Sig: METFORMIN ER 1,000 MG 24 HR T* TAKE ONE TABLET BY MOUTH TWIC* WELCHOL 625 MG TABLET TAKE THREE TABLETS BY MOUTH T* METFORMIN ER 1,000 MG 24 HR T* Take 1,000 mg by mouth twice * LINAGLIPTIN 5 MG TABLET Take 5 mg by mouth once daily. COLESEVELAM 625 MG TABLET Take 3 tablets by mouth twice* VITAMIN D-3 ORAL Take by mouth. CALCIUM ORAL Take by mouth. NATURE-THROID 65 MG TABLET HYDROXOCOBALAMIN 1,000 MCG/ML* SIMVASTATIN ORAL Take 40 mg by mouth once ann* ASPIRIN 81 MG CHEWABLE TABLET Take 81 mg by mouth once ann* REFRESH OPTIVE ADVANCED OPHTH* Use 1 Drop in eyes as needed. 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] INVALID FOR* Ocular hypertension [H40.059] INVALID FOR* Vitreous floaters of both eyes [H43.393] INVALID FOR* Prescriptions ordered this encounter Disp Refills Start End METFORMIN ER 1,000 MG 24 HR TABLET,E* 180 * 0 06/22/2017 Sig: TAKE ONE TABLET BY MOUTH TWICE DAILY WITH MEALS Encounter Status:Closed by MINH DE LUNA MD on 06/22/17 ALLERGIES ALLERGIES DATE TYPE / CODE NAME / CODE REACTION SEVERITY SOURCE 05/30/2018 Miscellaneous hay fever Unknown [facility] [place] [id number] Repository 05/30/2018 Miscellaneous poison faith Unknown [place] [facility][id number][facility] Repository ENCOUNTERS ENCOUNTERS ADMIT/DISCHARGE ACCOUNT ADMITTING ENCOUNTER LOCATION SOURCE NUMBER CLASS 06/05/2018 [id number] Ambulatory [place] 0 [facility] ing:OPBI Repository 05/30/2018/ [id number] Ambulatory BMSBuilding:B [place] 8 2 [facility] Repository 05/22/2018/ [id number] Ambulatory BMSBuilding:B [place] 8 5 [facility] Repository 05/19/2018 [id number] Ambulatory [place] 3 [facility] ing:LAB Repository 05/12/2018 [id number] Ambulatory [place] 2 [facility] ing:LABSPEC Repository 05/12/2018/ [id number] Ambulatory BMSBuilding:B [place] 8 8 [facility] Repository 12/21/2017 [id number] Ambulatory [place] 5 [facility] ing:MTLAB Repository 11/23/2017/ [id number] Ambulatory BMSBuilding:B [place] 8 1 [facility] Repository 11/18/2017 [id number] Ambulatory [place] 5 [facility] ing:MTLAB Repository 08/20/2017/ [id number] Ambulatory BMSBuilding:B [place] 8 4 [facility] Repository 08/18/2017 [id number] Ambulatory [place] 1 [facility] ing:MTLAB Repository 08/11/2017/ [id number] Ambulatory BMSBuilding:B [place] 8 9 [facility] Repository 08/03/2017/ [id number] Ambulatory BMSBuilding:B [place] 8 4 [facility] Repository 07/29/2017 [id number] Ambulatory [place] 1 [facility] ing:MTLAB Repository 07/18/2017 [id number] Ambulatory BMSBuilding:B [place] 9 [facility] Repository PAYERS PAYERS ENCOUNTER GUARANTOR PAYER SUBSCRIBER SOURCE 06/05/2018 GEOVANNA [place] Primary JUDSON DOMINGUEZDOB: [place] [id number] SR Insurance:ANTHEMPolic [id number] [facility] [address] y Number: [address], [id number] [address]Kjw: Date:6222-93-58CD [address], [place] ) [address]RV: 06/05/2018 Secondary NOT GIVENUNK [place] Insurance:SELF PAY [facility] Number: Effective Repository Date:2018-05-03 05/30/2018 GEOVANNA MATHIAS Primary Judson AlbertoDOB: [place] [address] Insurance:ANTHEMPolic [id number] [address], y Number[facility] [address]Dod: [id number] Repository Date:4135-53-86CV [address] () [address], [place] [address]EB: 05/30/2018 Secondary NOT GIVENUNK [place] Insurance:SELF PAY [facility] Number: Effective Repository Date:2018-05-30 05/22/2018 GEOVANNA MATHIAS Primary Judson DonnenaDOB: [place] [address] Insurance:ANTHEMPolic [id number] [address], y Number: [facility] [address]Crh: [id number] Repository Date:7777-87-66SX [address] () [address], [place] [address]FF: 05/22/2018 Secondary NOT GIVENUNK [place] Insurance:SELF PAY [facility] Number: Effective Repository Date:2018-05-22 05/19/2018 GEOVANNA MATHIAS Primary Judson DonnenaDOB: [place] [address] Insurance:ANTHEMPolic [id number] [address], y Number: [facility] [address]Jqg: [id number] Repository Date:1218-47-34AR [address] () [address]EJSDMFD, [place] [address]HV: 05/19/2018 Secondary NOT GIVENUNK [place] Insurance[facility]LF [facility]Y [facility] Effective Repository Date:2018-05-19 05/12/2018 GEOVANNA L Primary Judson DonleyDOB: [place] [id number] SR Insurance:ANTHEMPolic [id number] y Number: [facility] [address]Crr: (629) [id number] Repository [phone] () Date:1649-72-54ZZ [address]EWZLQGS, [place] [address]GW: 05/12/2018 Secondary NOT GIVENUNK [place] Insurance:SELF PAY [facility] Number: Effective Repository Date:2018-05-12 05/12/2018 GEOVANNA L Primary Judson DonleyDOB: [place] [id number] SR Insurance:ANTHEMPolic [id number] y Number: [facility] [address]Bmo: (330 [id number] Repository [phone] () Date:7102-36-32XO [address]WWIQ[address], [place] [address]HU: 05/12/2018 Secondary NOT GIVENUNK [place] Insurance:SELF PAY [facility] Number: Effective Repository Date:2018-05-12 12/21/2017 GEOVANNA L Primary Judson DonleyDOB: [place] [id number] SR Insurance:ANTHEMPolic [id number] y Number: [facility] [id number]: (330 [id number] Repository [phone] () Date:7047-69-57JM [address]JEXS, [place] [address]OI: 12/21/2017 Secondary NOT GIVENUNK [place] Insurance:SELF PAY [facility] Number: Effective Repository Date:2017-12-21 11/23/2017 GEOVANNA L Primary Judson DonleyDOB: [place] [id number] SR [facility] [id number] y Number: Hospital [address]Dwl: (330) [id number] Repository [phone] () Date:6142-57-39FG [address] [place] [address]LD: 11/23/2017 Secondary NOT GIVENUNK [place] Insurance:SELF PAY [facility] Number: Effective Repository Date:2017-11-23 11/18/2017 GEOVANNA L Primary Judson DominguezDOB: [place] [id number] SR Insurance:[facility] [id number] y Number: Hospital [address]Jmk: (330) [id number] Repository [phone] () Date:4809-94-85RU [address]XY, [place] [address]HP: 11/18/2017 Secondary NOT GIVENUNK [place] Insurance:SELF PAY [facility] Number: Effective Repository Date:2017-11-18 08/20/2017 GEOVANNA Primary GEOVANNA DOMINGUEZDOB: [place] [id number] SR [facility] [id number] [address]Gft: (330) PLANPolicy Number: Repository [phone] () [id number] Date:3581-11-06TD [address] [place], [place] [address]ARIEL [address]QO: 08/20/2017 Secondary NOT GIVENUNK [place] Insurance:SELF PAY [facility] Number: Effective Repository Date:2017-08-20 08/18/2017 GEOVANNA Primary GEOVANNA DOMINGUEZDOB: [place] [id number] [address] Insurance:[employer] [id number] [address]Mtp: (330) PLANPolicy Number: Repository [phone] () [id number] Date:4991-03-25PY [address] [place], [place] [address]ARIEL [address]ZB: 08/18/2017 Secondary NOT GIVENUNK [place] Insurance:SELF PAY [facility] Number: Effective Repository Date:2017-08-18 08/11/2017 GEOVANNA Primary GEOVANNA MOTAB: [place] [id number] Insurance:[employer] [id number] [address]Tel: (330) PLANPolicy Number: Repository [phone] () [id number] Date:5527-66-83YX [address] [place] [address]WX: 08/11/2017 Secondary NOT GIVENUNK [place] Insurance:SELF PAY [facility] Number: Effective Repository Date:2017-08-11 08/03/2017 GEOVANNA Primary GEOVANNA MOTAB: [place] [id number] [address] Insurance:[employer] [id number] [place]ille [address]Tel: (330) PLANPolicy Number: Repository [phone] () [id number] Date:6130-09-43TZ [address] [place] [address]TU: 08/03/2017 Secondary NOT GIVENUNK [place] Insurance:SELF PAY [facility] Number: Effective Repository Date:2017-06-07 07/29/2017 GEOVANNA Primary GEOVANNA MOTAB: [place] [id number] [address] Insurance:[employer] [id number] [place] [address]Tel: (330) PLANPolicy Number: Repository [phone] () [id number] Date:2404-10-96DX [address] [place] [address]TL: 07/29/2017 Secondary NOT GIVENUNK [place] Insurance:SELF PAY [facility] Number: Effective Repository Date:2017-07-29 07/18/2017 Geovanna Primary NOT GIVENUNK [place] [id number] Insurance:SELF PAY [address] [address]Kge: Number: Effective Repository Date:2017-07-18 ()
== END ==
PROVIDERS: Family Provider Internal Medicine; PCP Internal Medicine; Referring Provider Internal Medicine; Visit Provider Internal Medicine
DX: Z12.31 Encounter for screening mammogram for malignant neoplasm of breast (principal)
CPT/HCPCS: 77063; 77067

== ENCOUNTER → 2018-07-21 07:51 | Outpatient (CLI) | payer BC, SELFPAY ==
[2018-05-30 13:33] VITALS: BMI 43.2
--- NOTE | 2018-07-21 08:05 | RAD_ITS ---
STUDY: X-RAY - ESOPHAGUS (BARIUM SWALLOW) WITH FLUOROSCOPY REASON FOR EXAM: Female, 53 years old. Dysphagia for solids. TECHNIQUE: 15 view(s) of the esophagus were obtained following swallowing of barium. FLUOROSCOPY TIME (if supplied): (0:26) minutes/seconds COMPARISON: None. FINDINGS: There is no demonstrated esophageal foreign body. There is no demonstrated stricture or mucosal abnormality. Normal gastroesophageal junction, without a demonstrated hiatal hernia. The patient ingested a 12 mm tablet of barium without any difficulty. Normal visualized aortic arch and descending thoracic aorta. Normal visualized pulmonary parenchyma. Normal visualized osseous structures of the thorax. RAD/Esophagus Only IMPRESSION: Normal plain film x-ray examination (barium swallow) of the esophagus. Electronically Signed: Vitor Park MD at 14:25 EST Tel [phone], Service support ,
--- OUTSIDE RECORDS SUMMARY | 2018-09-24 14:53 | XMS RPT_ITS ---
:1965 Author Organization OHIP Support Name Relationship Address Phone JUDSON DOMINGUEZ Unavailable [id number] + [address] [place] [address] [facility] Unavailable [address] + [place] [address] JUDSON DOMINGUEZ Unavailable [address] + [address] [place] [address] [facility] Unavailable [address] + [place] [address] JUDSON DOMINGUEZ Unavailable [address] + [address] [place] [address] [facility] Unavailable [address] + [place] [address] JUDSON DOMINGUEZ Unavailable [address] + [address] [place] [address] [facility] Unavailable [address] + [place] [address] JUDSON DOMINGUEZ Unavailable [address] + [address] [place] [address] [facility] Unavailable [address] + [place] [address] JUDSON DOMINGUEZ Unavailable [address] + [address] [place] [address] [facility] Unavailable [address] + [place] [address] JUDSON DOMINGUEZ Unavailable [address] + [place] [address] [facility] Unavailable Unavailable + [facility] [address] JUDSON DOMINGUEZ Unavailable [address] + [facility] [address] MOUSTAPHA DOMINGUEZ Unavailable [address] + [place] [address] S Unavailable Unavailable Unavailable JUDSON DOMINGUEZ Unavailable [address] + [facility] [address] MOUSTAPHA DOMINGUEZ Unavailable [address] + [place] [address] S Unavailable Unavailable Unavailable JUDSON DOMINGUEZ Unavailable [address] + [place] [address] MOUSTAPHA DOMINGUEZ Unavailable [address] + [place] [address] S Unavailable Unavailable Unavailable JUDSON DOMINGUEZ Unavailable [address] + [place] [address] MOUSTAPHA DOMINGUEZ Unavailable [address] + [place] [address] S Unavailable Unavailable Unavailable JUDSON DOMINGUEZ Unavailable [address] + [place] [address] MOUSTAPHA DOMINGUEZ Unavailable [address] + [place] [address] S Unavailable Unavailable Unavailable JUDSON DOMINGUEZ Unavailable [address] + [place] [address] MOUSTAPHA DOMINGUEZ Unavailable [address] + [place] [address] S Unavailable Unavailable Unavailable JUDSON DOMINGUEZ Unavailable [address] + [place] [address] MOUSTAPHA DOMINGUEZ Unavailable [address] + [place] [address] S Unavailable Unavailable Unavailable JUDSON DOMINGUEZ Unavailable [address] + [place] [address] MOUTSAPHA DOMINGUEZ Unavailable [address] + [place] [address] S Unavailable Unavailable Unavailable JUDSON DOMINGUEZ Unavailable [address] + [place] [address] MOUSTAPHA DOMINGUEZ Unavailable [address] + [place] [address] S Unavailable Unavailable Unavailable JUDSON DOMINGUEZ Unavailable [address] + [place] [address] MOUSTAPHA DOMINGUEZ Unavailable [address] + [place] [address] S Unavailable Unavailable Unavailable JUDSON DOMINGUEZ Unavailable [address] + [place] [address] MOUSTAPHA DOMINGUEZ Unavailable [address] + [place] [address] S Unavailable Unavailable Unavailable Care Team Providers Name Role Phone Orestes Quintanilla Attending Unavailable Orestes Quintanilla Referring Unavailable Oleghe, Efewongbe Primary Care Unavailable Gertrude Jackson Attending Unavailable María Marrero ASSOCIATE DIRECTOR REGULATORY AFFAIRS-C Attending Unavailable Kasey Rudd Referring Unavailable Alfonso, Shaq Primary Care Unavailable Kate Espinoza Attending Unavailable MansfieldShena samaniego Attending Unavailable Oleghe, Efewongbe Referring Unavailable BillyShena samaniego Attending Unavailable MansfieldShena Referring Unavailable Oleghe, Efewongbe Primary Care Unavailable Sukumar Hadley Attending Unavailable Alfonso, Shaq Referring Unavailable Alfonso, Shaq Primary Care Unavailable Alfonso, Shaq Attending Unavailable Alfonso, Shaq Referring Unavailable Alfonso, Shaq Primary Care Unavailable Angeles Mir Attending Unavailable Alfonso, Shaq Referring Unavailable Alfonso, Shaq Primary Care Unavailable María Marrero ASSOCIATE DIRECTOR REGULATORY AFFAIRS-C Attending Unavailable María Marrero ASSOCIATE DIRECTOR REGULATORY AFFAIRS-C Referring Unavailable Alfonso, Shaq Primary Care Unavailable María Marrero ASSOCIATE DIRECTOR REGULATORY AFFAIRS-C Attending Unavailable Alfonso, Shaq Referring Unavailable Alfonso, Shaq Primary Care Unavailable María Marrero ASSOCIATE DIRECTOR REGULATORY AFFAIRS-C Attending Unavailable Alfonso, Shaq Primary Care Unavailable Sai Walsh Attending Unavailable Alfonso, Shaq Referring Unavailable Sai Walsh Attending Unavailable Alfonso, Shaq Primary Care Unavailable Sai Walsh Referring Unavailable María Marrero ASSOCIATE DIRECTOR REGULATORY AFFAIRS-C Attending Unavailable María Marrero ASSOCIATE DIRECTOR REGULATORY AFFAIRS-C Referring Unavailable Alfonso, Shaq Primary Care Unavailable María Marrero ASSOCIATE DIRECTOR REGULATORY AFFAIRS-C Attending Unavailable Alfonso, Shaq Referring Unavailable Oleghe, Efewongbe Attending Unavailable Alfonso, Shaq Referring Unavailable Oleghe, Efewongbe Attending Unavailable Oleghe, Efewongbe Referring Unavailable Oleghe, Efewongbe Primary Care Unavailable María Marrero ASSOCIATE DIRECTOR REGULATORY AFFAIRS-C Consulting Unavailable PROBLEMS PROBLEMS DATE TYPE CONDITION / CODE ATTENDING STATUS SOURCE 07/27/2018 Unknown Z12.4 - Encounter Shena Cervantes Active [facility] for screening for Community malignant neoplasm Hospital of cervix / Repository Z12.4(ICD-10) 07/27/2018 Unknown E11.65 - Type 2 Shena Cervantes Active [facility] diabetes mellitus Community with hyperglycemia Hospital / E11.65(ICD-10) Repository 05/30/2018 Unknown Z12.31 - Encounter Oleghe, Active [facility] for screening [facility] mammogram for Hospital malignant neoplasm Repository of breast / Z12.31(ICD-10) 05/30/2018 Unknown E11.9 - Type 2 [place]leghe, Active [facility] diabetes mellitus [facility] without Hospital complications / Repository E11.9(ICD-10) 05/30/2018 Unknown R13.10 - Dysphagia, Oleghe, Active [facility] unspecified / [place] Community R13.10(ICD-10) Hospital Repository 05/30/2018 Unknown H91.90 - Oleghe, Active [facility] Unspecified hearing [facility] Community loss, unspecified Hospital ear / Repository H91.90(ICD-10) 05/15/2018 Unknown J02.9 - Acute Nico, Sai Active [facility] pharyngitis, Community unspecified / Hospital J02.9(ICD-10) Repository 11/23/2017 Unknown E03.9 - María Marrero Active [facility] Hypothyroidism, ASSOCIATE DIRECTOR REGULATORY AFFAIRS-C Community unspecified / Hospital E03.9(ICD-10) Repository 11/23/2017 Unknown E11.69 - Type 2 María Marrero Active [facility] diabetes mellitus ASSOCIATE DIRECTOR REGULATORY AFFAIRS-C Community with other Hospital specified Repository complication / E11.69(ICD-10) 11/23/2017 Unknown I10 - Essential María Marrero Active [facility] (primary) ASSOCIATE DIRECTOR REGULATORY AFFAIRS-C Community hypertension / Hospital I10(ICD-10) Repository 11/18/2017 Unknown E78.5 - María Marrero Active [facility] Hyperlipidemia, ASSOCIATE DIRECTOR REGULATORY AFFAIRS-C Community unspecified / Hospital E78.5(ICD-10) Repository 08/20/2017 Unknown R50.9 - Fever, Mir, Active [facility] unspecified / [place] M Community R50.9(ICD-10) Hospital Repository PROCEDURES PROCEDURES No Procedure Records FoundRESULTS RESULTS [facility] OFFICE VISIT Observed: 07/27/2018 Status: F Source: POLAND REPORT 1:16 PM [facility] REPOSITORY [facility] [address] [place] [address] OFFICE VISIT Date of Service: 07/27/18 MR#: [id number] Acct: [id number] Name: GEOVANNA DOMINUGEZ Rep #: [id number] : 1965 Provider: DIEGO Cervantes Age/Sex: 53/F [place] [facility] Status: Signed Intake Vital Signs07/27/18 Body Mass Index (BMI) 43.2 07/27/18 Height 5 ft 7 in 07/27/18 Weight: 281 lb 6 oz 07/27/18 Body Mass Index (BMI) 44.0 07/27/18 Blood Pressure 132/88 H Intake Visit Reasons: New Annual/Pap Icu Rn Required: No Is patient in pain?: No Allergies hay fever Allergy (Severe, Uncoded 05/30/18 13:27) Unknown poison faith Allergy (Severe, Uncoded 05/30/18 13:27) Unknown Medications aspirin 81 mg tablet,delayed release 81 mg PO QDAY 07/18/17 [History Confirmed 07/27/18] albuterol sulfate HFA 90 mcg/actuation aerosol inhaler See Rx Instructions INHALATION Q4H PRN g 08/03/17 [History Confirmed 07/27/18] levothyroxine 100 mcg capsule 100 mcg PO QDAY #60 cap 11/23/17 [Rx Confirmed 07/27/18] lisinopril 20 mg tablet 20 mg PO QDAY #30 tab 07/25/18 [Rx Confirmed 07/27/18] simvastatin 40 mg tablet 40 mg PO QHS #90 tab 07/25/18 [Rx Confirmed 07/27/18] clobetasol 0.05 % topical cream 1 applic TOPICAL .COMPLEX #15 g 07/27/18 [Rx Confirmed 07/27/18] glyburide 5 mg tablet 5 mg PO TID tab 07/27/18 [History] metformin ER 500 mg tablet,extended release 24 hr 500 mg PO TID tab 07/27/18 [History Confirmed 07/27/18] Is last menstrual period known: No Post menopausal: No Patient : No : No PFSH Medical History Sleep apnea (Chronic) Hypertension (Chronic) Anemia (Acute) Back problem (Acute) Bone fracture [...] never substance use type: does not use caffeine: Yes what type of physical activity do you participate in: none seatbelt use: always do you feel safe at home: Yes additional social history: Rxarxoz-Wxtoi-Qubglkkjb Patient is press secretary at [employer] Pregancy History 0 Elective abortions Hx Para Spontaneous abortions HPI New Annual/Pap: Details: GEOVANNA DOMINGUEZ is a 53 year old who presents for new patient annual exam. Has small bump on labia that itches Last PAP: 2016 History of abnormal PAP: no Last mammogram: 06/2018 History of abnormal mammogram: 2004 lumpectomy, cyst left breast Colon cancer screenin Female Reproductive History Questions: Metorrhagia: No, Sexually active: Yes, Dyspareunia: No, PCB: No ROS Const Constitutional: Denies fatigue, weight gain or weight loss Cardio Card: Denies chest pain Resp Resp: Denies cough or shortness of breath with activity GI GI: Denies abdominal pain, constipation, change in stools, vomiting or bloating : Reports as per HPI and vaginal itching; denies urinary frequency, pelvic pain, urinary urgency, vaginal discharge, difficulty urinating or urinary incontinence Exam Const General: cooperative, healthy appearing, no acute distress, well developed Orientation: alert, oriented to person, oriented to place HENMT Head: normal to inspection Neck Neck: normal visual inspection Thyroid: thyroid normal Lymphatic: no lymphadenopathy noted Chest Breast inspection: normal inspection of the breasts, normal inspection of the axillae Breast palpation: normal palpation of the breasts, normal palpation of the axillae, no axillary lymphadenopathy Resp Effort AND Inspection: normal respiratory effort GI Palpation: soft, nontender, no masses Rectal Exam: deferred External Female Exam: normal appearance of the urethra, other (left groin/labia linear crack with silver whitening) Urethra: normal appearance of the urethra, normal palpation Speculum Exam - Vagina: normal appearance of the vagina, normal vaginal discharge Speculum Exam - Cervix: normal appearance of the cervix Bimanual Exam- Vagina AND Uterus: normal bimanual exam, uterine size normal, uterine shape normal, uterus non-tender Bimanual Exam- Adnexa, other: normal adnexae, no adnexal masses, adnexae non-tender, pelvic support normal Pelvic Support: normal Neuro General: alert, oriented x3 Psych Affect: normal affect Assessment AND Plan Problems 1. Encounter for gynecological examination with abnormal finding Z01.411 2. Pap smear for cervical cancer screening Z12.4 3. Lichen sclerosus L90.0 Plan Completed breast and pelvic exam Reviewed diet and exercise Pap thin prep pap with HPV Mammogram rcent RX clobetesol Colonoscopy up to date RTO 4 weeks Shena Cervantes [employer] Medications New: clobetasol 0.05% 1 applic TOPICAL apply thin layer as directed bid X 2 weeks then daily X 2 weeks; apply thin layer; massage in to cover area 15 grams 2RF Coding Level of Care Code Off vis,new,prev 40-64yrs Diagnoses Encounter for gynecological examination with abnormal finding Z01.411 Gynecological examination findings: abnormal findings PRESENT Pap smear for cervical cancer screening Z12.4 Lichen sclerosus L90.0 07/27/18 1316 <Electronically signed by Shena HINOJOSA> Date Shena MARTINEZC Cosigner Signature: Date (if applicable) CC: ESOPHAGUS ONLY Observed: 07/21/2018 Status: F Source: FINN 8:02 AM [facility] REPOSITORY [facility] Imaging Services [address] [place] [address] Esophagus Only MR#: [id number] Acct: [id number] Name: GEOVANNA DOMINGUEZ Rep #: [id number] : 1965 F 53 From: Vitor Park MD PCP: Marietta Strickland MD Status: REG CLI Study: Esophagus Only Date of Exam: 07/21/18 Exam# [id number] Ordering Dr: Orestes Quintanilla MD STUDY: X-RAY - ESOPHAGUS (BARIUM SWALLOW) WITH FLUOROSCOPY REASON FOR EXAM: Female, 53 years old. Dysphagia for solids. TECHNIQUE: 15 view(s) of the esophagus were obtained following swallowing of barium. FLUOROSCOPY TIME (if supplied): (0:26) minutes/seconds COMPARISON: None. FINDINGS: There is no demonstrated esophageal foreign body. There is no demonstrated stricture or mucosal abnormality. Normal gastroesophageal junction, without a demonstrated hiatal hernia. The patient ingested a 12 mm tablet of barium without any difficulty. Normal visualized aortic arch and descending thoracic aorta. Normal visualized pulmonary parenchyma. Normal visualized osseous structures of the thorax. RAD/Esophagus Only IMPRESSION: Normal plain film x-ray examination (barium swallow) of the esophagus. Electronically Signed: Vitor Park MD at 14:25 EST Tel [phone], Service support , CC: Orestes Quintanilla MD; Marietta Strickland MD Viscera Washer: Signed SCREENING MAMM (CAD), Observed: 06/05/2018 Status: F Source: FINN BILAT 7:02 AM [facility] REPOSITORY [facility] Imaging Services [address] [place] [address] SCREENING MAMM (CAD), BILAT MR#: [id number] Acct: [id number] Name: GEOVANNA DOMINGUEZ Rep #: [id number] : 1965 F 52 From: Vitor Park MD PCP: Marietta Strickland MD Status: REG CLI Study: SCREENING MAMM (CAD), BILAT Date of Exam: 06/05/18 Exam# [id number] Ordering Dr: Marietta Strickland MD MAMMOGRAPHY - [...] delay biopsy of a clinically suspicious abnormality. [id number] Electronically Signed: Vitor Park MD at 11:36 EST Tel [phone], Service support , CC: Marietta Strickland MD Viscera Washer: Signed INTERNAL MEDICINE Observed: 06/02/2018 Status: F Source: FINN OFFICE VISIT 1:26 PM [facility] Internal Medicine [address] [place] [address] OFFICE VISIT Date of Service: 05/30/18 MR#: [id number] Acct: [id number] Name: GEOVANNA DOMINGUEZ Rep #: [id number] : 1965 Provider: Marietta Strickland MD Age/Sex: 52/F [place] [facility] Status: Signed Intake Vital Signs05/30/18 Body Mass [...] Note: Pt presents today to establish care. PFSH Medical History Anemia (Acute) Back problem [...] General: cooperative Orientation: alert, awake, oriented x3 [facility] Head: atraumatic, normocephalic, normal to inspection Ears: [...] diabetes mellitus E11.9 Plan Chronic. Poorly controlled. Ofe-tsdxzfz-gqhblabxt. Due to her associated morbid obesity, I [...] colon cancer. This note was generated with Direct Sitters dictation software. It may contain incorrect words, spelling, [...] ENDOCRINOLOGY VISIT Observed: 05/23/2018 Status: F Source: POLAND REPORT 8:26 AM [facility] REPOSITORY [facility] [address] [place] [address] OFFICE VISIT Date of Service: 05/22/18 MR#: [id number] Acct: [id number] Name: GEOVANNA DOMINGUEZ Rep #: [id number] : 1965 Provider: María Marrero NP Age/Sex: 52/F [place] [facility] [place]: Signed HPI History of present illness [...] Intake Visit Reasons: Diabetes Mellitus Type 2 Icu Rn Required: No Accompanied by: Self Is patient [...] HEMOGLOBIN A1C Collected: 05/19/2018 Status: F Source: FINN 10:05 AM [facility] REPOSITORY TYPE CODE TESTS RESULT OUT OF RANGE REFERENCE UNITS LAB L501.9985 4.2-6.3 % High HGB A1C 7.5 Performed By: #### L501.9985 #### [facility] [address] [place], [place], [address] COMPREHENSIVE METABOLIC Collected: 05/19/2018 Status: F Source: FINN [facility] 10:05 AM [facility] REPOSITORY TYPE CODE TESTS RESULT OUT OF [...] GAP 9 Performed By: #### L500.4050 #### [facility] [address] [place], [address] URGENT CARE VISIT Observed: 05/12/2018 Status: F Source: FINN REPORT 3:23 PM [facility] REPOSITORY [facility] [address] [facility] [address] [place] [address] OFFICE VISIT Date of Service: 05/12/18 MR#: [id number] Acct: [id number] Name: GEOVANNA DOMINGUEZ Rep #: [id number] : 1965 Provider: Sai TORIBIO Age/Sex: 52/F Location[place] [facility] Status: Signed Intake Vital Signs05/12/18 Height 5 ft 7.5 in 05/12/18 Weight: 280 lb 05/12/18 Body Mass Index (BMI) 43.2 05/12/18 Blood Pressure 128/84 H 05/12/18 Respiratory Rate 14 Intake Visit Reasons: SORE THROAT Chief Complaint: SORE THROAT Icu Rn Required: No Accompanied by: SELF Is patient [...] changes Exam Const General: cooperative, healthy appearing HENMT Head: normal to inspection Ears: hearing [...] CC: Observed: 05/12/2018 Status: F Source: FINN CULTURE, R/O STREP A 1:00 PM [facility] REPOSITORY ANDREA Culture No Group A Beta Streptococcus isolated. * This cultures intended use is to screen for Beta Streptococcus A only. All other pathogens and potential pathogens will not be screened for or reported. If a complete workup of all potential pathogens is indicated an order for a routine throat culture is required. Performed By: #### M100.010 #### [facility] [address] [place], [address] COMPREHENSIVE METABOLIC Collected: 12/21/2017 Status: F Source: FINN [facility] 10:27 AM [facility] REPOSITORY TYPE CODE TESTS RESULT OUT OF [...] GAP 9 Performed By: #### L500.4050 #### [facility] [address] [place], [address] ENDOCRINOLOGY VISIT Observed: 11/23/2017 Status: F Source: POLAND REPORT 6:39 PM [facility] REPOSITORY [facility] [address] [place], [place] [address] OFFICE VISIT Date of Service: 11/23/17 MR#: [id number] Acct: [id number] Name: GEOVANNA DOMINGUEZ Rep #: [id number] : 1965 Provider: María Marrero NP Age/Sex: 52/F [place] [facility] [place] Status: Signed HPI History of present illness [...] Sitting Intake Visit Reasons: 3 M FU Icu Rn Required: No Accompanied by: Family / Other [...] 5,000 unit PO QDAY 08/03/17 [History Confirmed 11/23/17] colesevelam 625 mg tablet [...] E11.69; E78.5 Time Spent (min) 30 11/23/17 1839 <Electronically signed by María HINOJOSA> Date María HINOJOSA Cosigner Signature: Date (if applicable) CC: HEMOGLOBIN A1C Collected: 11/18/2017 Status: F Source: FINN 10:49 AM [facility] REPOSITORY TYPE CODE TESTS RESULT OUT OF RANGE REFERENCE UNITS LAB L501.9985 4.2-6.3 % High HGB A1C 7.8 Performed By: #### L501.9985, L500.4050, L500.4100, L501.9520, L506.0400 #### [facility] [address] [place], [address] COMPREHENSIVE METABOLIC Collected: 11/18/2017 Status: F Source: [facility] 10:49 AM [facility] REPOSITORY TYPE CODE TESTS RESULT OUT OF [...] #### L501.9985, L500.4050, L500.4100, L501.9520, L506.0400 #### [facility] [address] [facility] [place], [address] LIPID PROFILE Collected: 11/18/2017 Status: F Source: [place]AND 10:49 AM [facility] REPOSITORY TYPE CODE TESTS RESULT OUT OF [...] #### L501.9985, L500.4050, L500.4100, L501.9520, L506.0400 #### [facility] [address] [place], [place], [address] THYROID STIM HORMONE Collected: 11/18/2017 Status: F Source: FINN (TSH) 10:49 AM [facility] REPOSITORY TYPE CODE TESTS RESULT OUT OF RANGE REFERENCE UNITS LAB L501.9520 0.358-3.74 uIU/mL Normal TSH 2.16 Performed By: #### L501.9985, L500.4050, L500.4100, L501.9520, L506.0400 #### [facility] [address] [place], [place], [address] T4 FREE DIRECT Collected: 11/18/2017 Status: F Source: FINN 10:49 AM [facility] REPOSITORY TYPE CODE TESTS RESULT OUT OF RANGE REFERENCE UNITS LAB L506.0400 0.76-1.46 ng/dL Normal T4 FREE 0.93 DIRECT Performed By: #### L501.9985, L500.4050, L500.4100, L501.9520, L506.0400 #### [facility] [address] [place], [place], [address] MICROALB:CREAT Collected: 11/18/2017 Status: F Source: FINN RATIO,RANDOM UR 10:49 AM [facility] REPOSITORY TYPE CODE TESTS RESULT OUT OF RANGE REFERENCE UNITS LAB L501.1200 NO RANGE EST. mg/dL Normal UR CREAT 139.00 LAB L502.0500 NO RANGE EST. mg/L Normal 6.4 MICROALBUMIN ,UR LAB L502.0600 <30 mg/g CRE mg/g CRE Normal 4.6 MALB:CREAT Performed By: #### L502.0250 #### [facility] [address] [place], [address] URGENT CARE VISIT Observed: 08/20/2017 Status: F Source: POLAND REPORT 12:56 PM [facility] REPOSITORY [facility] [address] [place] [address] [address] [place] [address] OFFICE VISIT Date of Service: 08/20/17 MR#: [id number] Acct: [id number] Name: GEOVANNA DOMINGUEZ Rep #: [id number] : 1965 Provider: Angeles Mir Age/Sex: 52/F Location[place] [facility] Status: Signed Intake Vital Signs08/20/17 Height 5 [...] Complaint: sinus pressure and ear pain Details: GEOAVNNA DOMINGUEZ, is a 52 F who presents to the office today for her an acute visit. Patient states that her symptoms started evening where she had fevers, chills body [...] 08/18/2017 Status: F Source: FINN 4:48 PM [facility] REPOSITORY TYPE CODE TESTS RESULT OUT OF [...] Lymph 0.76 Performed By: #### L100.0100 #### [facility] [address] [place], [address] CHEST PA AND LATERAL Observed: 08/18/2017 Status: F Source: POLAND 4:39 PM [facility] REPOSITORY [facility] Imaging Services [address] [place] [address] Chest PA and Lateral MR#: [id number] Acct: [id number] Name: GEOVANNA DOMINGUEZ Rep #: [id number] : 1965 F 52 From: Benito Islas MD PCP: Shaq Hamilton DO Status: REG CLI Study: Chest PA and Lateral Date of Exam: 08/18/17 Exam# [id number] Ordering Dr: Shaq Hamilton DO STUDY: X-RAY [...] Service support , CC: Shaq Hamilton DO Viscera Washer: Signed URGENT CARE VISIT Observed: 08/11/2017 Status: F Source: FINN REPORT 9:31 AM [facility] REPOSITORY [facility] [address] [place] [address] [address] [place] [address] OFFICE VISIT Date of Service: 08/11/17 MR#: [id number] Acct: [id number] Name: GEOVANNA DOMINGUEZ Rep #: [id number] : 1965 Provider: Sukumar TORIBIO Age/Sex: 52/F Location: [facility] Status: Signed Intake Intake Visit Reasons: SINUS [...] the above This note was generated with Direct Sitters dictation software. It may contain incorrect words, spelling, and punctuation that were not noted in checking the note before signing. Medications New: doxycycline hyclate please inform pt levaquin is contraindicated for sxz106 mg PO BID due to citalopram prescription she is already on Coding Level of Care Code Off vis,est,level 4 Diagnoses Otitis media H66.90 Sinusitis J32.9 08/11/17 0931 <Electronically signed by Sukumar TORIBIO> Date Sukumar TORIBIO Cosigner Signature: Date (if applicable) CC: ENDOCRINOLOGY VISIT Observed: 08/03/2017 Status: F Source: FINN REPORT 11:34 AM [facility] REPOSITORY [facility] [address] [place] [address]. [address] [place] [address] OFFICE VISIT Date of Service: 08/03/17 MR#: [id number] Acct: [id number] Name: GEOVANNA DOMINGUEZ Rep #: [id number] : 1965 Provider: María Marrero NP Age/Sex: 52/F [place] [facility] [place]: S[place] HPI History of present illness [...] Sitting Intake Visit Reasons: 3 M FU Icu Rn Required: No Accompanied by: Son Is patient [...] blood sugars : low : high : PFSH Medical History Anemia (Acute) Back problem [...] HINOJOSA Cosigner Signature: Date (if applicable) CC: ALLERGIES ALLERGIES DATE TYPE / CODE NAME / CODE REACTION SEVERITY SOURCE 05/30/2018 Miscellaneous hay fever Unknown [place] Allergy/[id number]([facility]) Hospital Repository 05/30/2018 Miscellaneous poison faith Unknown SV [place] Allergy/[id number]([facility]) Hospital Repository ENCOUNTERS ENCOUNTERS ADMIT/DISCHARGE ACCOUNT ADMITTING ENCOUNTER LOCATION SOURCE NUMBER CLASS 07/27/2018 [id number] Ambulatory [place] 0 [facility] Hospital ing:LABSPEC Repository 07/27/2018/ [id number] Ambulatory BMSBuilding:B [place] 9 5 [facility] Repository 07/25/2018 [id number] Ambulatory BMSBuilding:B [place] 2 [facility] Repository 07/25/2018 [id number] Ambulatory BMSBuilding:B [place] 3 [facility] Repository 07/21/2018 [id number] Ambulatory [place] 9 [facility] Hospital ing:RAD Repository 06/05/2018 [id number] Ambulatory [place] 0 [facility] ing:OPBI Repository 05/30/2018/ [id number] Ambulatory BMSBuilding:B [place] 8 2 [facility] Repository 05/22/2018/ [id number] Ambulatory BMSBuilding:B [place] [address] [facility] Repository 05/19/2018 [id number] Ambulatory [place] 3 [facility] ing:LAB Repository 05/12/2018 [id number] Ambulatory [place] 2 [facility] ing:LABSPEC Repository 05/12/2018/ [id number] Ambulatory BMSBuilding:B [place] 8 8 [facility] Hospital Repository 12/21/2017 [id number] Ambulatory [place] 5 [facility] ing:MTLAB Repository 11/23/2017/ [id number] Ambulatory BMSBuilding:B [place] [address] [facility] Repository 11/18/2017 [id number] Ambulatory [place] 5 [facility] ing:MTLAB Repository 08/20/2017/ [id number] Ambulatory BMSBuilding:B [place] 8 4 [facility] Hospital Repository 08/18/2017 [id number] Ambulatory [place] 1 [facility] ing:MTLAB Repository 08/11/2017/ [id number] Ambulatory BMSBuilding:B [place] 8 9 [facility] Hospital Repository 08/03/2017/ [id number] Ambulatory BMSBuilding:B [place] [address] [facility] Repository PAYERS PAYERS ENCOUNTER GUARANTOR PAYER SUBSCRIBER SOURCE 07/27/2018 GEOVANNA [id number] SR [facility] [place]: Community [address] y Number: [id number], [id number] Repository [place] [address]Fur: Date:2125-51-82IS BOX DARCY MOREIRA () [address]WT: 07/27/2018 Secondary NOT GIVENUNK [place] Insurance:SELF PAY [facility] Number: Effective Repository Date:2018-07-27 07/27/2018 GEOVANNA L Primary JUDSON L [place] [id number] SR Insurance:ANTHEMPolic DONLEYDOB: Community [address] y Number: [id number], [id number] Repository [place] [address]Lke: Date:1391-37-59IC BOX DARCY MOREIRA () [address]HI: 07/27/2018 Secondary NOT GIVENUNK [place] Insurance:SELF PAY [facility] Number: Effective Repository Date:2018-07-27 07/25/2018 GEOVANNA L Primary JUDSON L [place] [id number] SR Insurance:ANTHEMPolic DONLEYDOB: Community [address] y Number: [id number], [id number] Repository [place] [address]Kql: Date:9500-05-60RE BOX DARCY MOREIRA () [address]NZ: 07/25/2018 Secondary NOT GIVENUNK [place] Insurance:SELF PAY [facility] Number: Effective Repository Date:2018-07-25 07/25/2018 GEOVANNA L Primary JUDSON L [place] [id number] SR Insurance:ANTHEMPolic DONLEYDOB: Community [address] y Number: [id number], [id number] Repository [place] [address]Vow: Date:7609-79-60WS [address]MUWZVHWDARCY BARBOSA () [address]JC: 07/25/2018 Secondary NOT GIVENUNK [place] Insurance:SELF PAY [facility] Number: Effective Repository Date:2018-07-25 07/21/2018 GEOVANNA [place] Primary JUDSON [place] Finn [id number] SR Insurance:ANTHEMPolic DONLEYDOB: Community [address] y Number: [id number] [address], [id number] Repository [place] [address]Mpm: Date:1029-41-87PC [address]IFUEUKH, [place] () [address]CV: 07/21/2018 Secondary NOT GIVENUNK [place] Insurance:SELF PAY [facility] Number: Effective Repository Date:2018-06-19 06/05/2018 GEOVANNA [place] Primary JUDSON DOMINGUEZDOB: [place] [id number] SR Insurance:ANTHEMPolic [id number] Community [address] y Number: [address], [id number] [place]ository [place] [address]Iec: Date:2799-47-41FE [address]ABQFQEN, [place] () [address]ZZ: 06/05/2018 Secondary NOT GIVENUNK [place] Insurance:SELF PAY [facility] Number: Effective Repository Date:2018-05-03 05/30/2018 GEOVANNA MATHIAS Primary Judson DonnenaDOB: Finn BOX Insurance:ANTHEMPolic [id number] [address], y Number: [facility] [address]Uog: [id number] Repository Date:2487-01-47EM BOX () DARCY MOREIRA [address]HY: 05/30/2018 Secondary NOT GIVENUNK [place] Insurance:SELF PAY [facility] Number: Effective Repository Date:2018-05-30 05/22/2018 GEOVANNA MATHIAS Primary Judson DominguezDOB: [place] BOX Insurance:ANTHEMPolic [id number] [address], y Number: [facility] [address]Udv: [id number] Repository Date:0720-39-50ZC BOX () DARCY MOREIRA [address]QK: 05/22/2018 Secondary NOT GIVENUNK [place] Insurance:SELF PAY [facility] Number: Effective Repository Date:2018-05-22 05/19/2018 GEOVANNA DOMINGUEZRONEN Primary Judson ChristineNasirB: [place] BOX Insurance:ANTHEMPolic [id number] [place] [address], y Number: [facility] [address]Win: [id number] Repository Date:9939-23-44SO BOX () [id number] [place] [address]NO: 05/19/2018 Secondary NOT GIVENUNK [place] Insurance:SELF PAY [facility] Number: Effective Repository Date:2018-05-19 05/12/2018 GEOVANNA [place] Primary Judson DominguezDOB: [place] [id number] SR Insurance:ANTHEMPolic [id number] y Number: Hospital [id number]: (330 [id number] Repository [phone] () Date:3413-06-22CO [address]AIWEIOQ, [place] [address]TA: 05/12/2018 Secondary NOT GIVENUNK [place] Insurance:SELF PAY [facility] Number: Effective Repository Date:2018-05-12 05/12/2018 GEOVANNA [place] Primary Judson DominguezDOB: [place] [id number] SR Insurance:ANTHEMPolic [id number] [address] y Number: [facility] [id number]: (330 [id number] Repository [phone] () Date:0093-32-16TX [id number] [place] [address]PV: 05/12/2018 Secondary NOT GIVENUNK [place] Insurance:SELF PAY [facility] Number: Effective Repository Date:2018-05-12 12/21/2017 GEOVANNA [place] Primary Judson DominguezDOB: [place] [id number] SR Insurance:ANTHEMPolic [id number] [address] y Number: Hospital [id number]: (330 [id number] Repository [phone] () Date:1629-99-32[address]LDINYB, [place] [address]FT: 12/21/2017 Secondary NOT GIVENUNK [place] Insurance:SELF PAY [facility] Number: Effective Repository Date:2017-12-21 11/23/2017 GEOVANNA L Primary Judson DominguezDOB: [place] [id number] SR Insurance:[facility] [id number] y Number: Hospital [address]Heg: (330) [id number] Repository [phone] () Date:6515-14-07LV [address]NNSBCOF, [place] [address]GB: 11/23/2017 Secondary NOT GIVENUNK [place] Insurance:SELF PAY [facility] Number: Effective Repository Date:2017-11-23 11/18/2017 GEOVANNA L Primary Judson DominguezDOB: [place] [id number] SR Insurance:[facility] [id number] y Number: Hospital [address]Jcj: (330) [id number] Repository [phone] () Date:3153-93-29BF [id number] [place] [address]UQ: 11/18/2017 Secondary NOT GIVENUNK [place] Insurance:SELF PAY [facility] Number: Effective Repository Date:2017-11-18 08/20/2017 GEOVANNA Primary GEOVANNA DOMINGUEZDOB: [place] [id number] SR Insurance:lovemeshare[employer] [id number] [address]Lxq: (330) PLANPolicy Number: Repository [phone] () [id number] Date:5477-91-62LA [address] [place] [address]LY: 08/20/2017 Secondary NOT GIVENUNK [place] Insurance:SELF PAY [facility] Number: Effective Repository Date:2017-08-20 08/18/2017 GEOVANNA Primary GEOVANNA DOMINGUEZDOB: [place] [id number] SR Insurance:[employer] [id number] [address]Rhu: (330) PLANPolicy Number: Repository [phone] () [id number] Date:0697-51-01PT [address] NORIEGA [address]JX: 08/18/2017 Secondary NOT GIVENUNK [place] Insurance:SELF PAY [facility] Number: Effective Repository Date:2017-08-18 08/11/2017 GEOVANNA Primary GEOVANNA DOMINGUEZB: [place] [id number] S R Insurance:[place] [id number] [address]Vzr: (330) PLANPolicy Number: Repository [phone] () [id number] Date:5503-85-26LF [address] [place] [address] [place] [address]KD: 08/11/2017 Secondary NOT GIVENUNK [place] Insurance:SELF PAY [facility] Number: Effective Repository Date:2017-08-11 08/03/2017 GEOVANNA Primary GEOVANNA DOMINGUEZB: [place] [id number] S R Insurance:[place] [id number] [address]Ehs: (330) PLANPolicy Number: Repository [phone] () [id number] Date:4627-24-70KY [address] [place] [address] [place] [address]TH: 08/03/2017 Secondary NOT GIVENUNK [place] Insurance:SELF PAY [facility] Number: Effective Repository Date:2017-06-07
== END ==
PROVIDERS: Family Provider Internal Medicine; PCP Internal Medicine; Referring Provider Otolaryngology Otolaryngology/Facial Plastic Surgery; Visit Provider Otolaryngology Otolaryngology/Facial Plastic Surgery
DX: R13.10 Dysphagia, unspecified (principal)
CPT/HCPCS: 74220

== ENCOUNTER → 2018-07-27 16:38 | Outpatient (CLI) | payer BC, SELFPAY ==
[2018-07-27 13:08] VITALS: BMI 43.2
[2018-08-01 15:17] LABS: HPV APTIMA, High Risk Negative (Negative)
== END ==
PROVIDERS: Family Provider Internal Medicine; PCP Internal Medicine; Referring Provider Nurse Practitioner Women's Health; Visit Provider Nurse Practitioner Women's Health
DX: Z12.4 Encounter for screening for malignant neoplasm of cervix (principal)
CPT/HCPCS: 87624; 88175; G0145

== ENCOUNTER → 2018-11-22 | Outpatient (CLI) | payer OTHER, SELFPAY ==
[2018-11-17 11:31] VITALS: BMI 43.2
[2018-11-22 10:26] LABS: Microalbumin,Random Urine 26.9 mg/L (NO RANGE EST.); Microalbumin:Creatinine Ratio 10.9 mg/g CRE (<30 mg/g CRE)
[2018-11-22 10:39] LABS: Hemoglobin A1c 8.3 % (4.2-6.3)
[2018-11-22 10:49] LABS: ALB/GLOB Ratio 1.1 RATIO (0.9-2.4); AST(SGOT) 26 U/L (15-37); Alanine Aminotransfer ALT/SGPT 38 U/L (13-56); Albumin, Serum 3.6 g/dL (3.2-5.0); Alkaline Phosphatase 93 U/L (45-117); Anion Gap 7 (5-15); BUN 14 mg/dL (7-18); BUN/Creat Ratio 15.7 RATIO (10-20); Calcium,Total 8.7 mg/dL (8.5-10.1); Chloride 108 mmol/L (98-107); Creatinine, Serum 0.89 mg/dL (0.55-1.02); EST Glomerular Filtration Rate 70 mL/min (>60); Est Glom Filt Rate - Afr Amer 85 mL/min (>60); Globulin 3.4 g/dL (2.2-4.2); Glucose 217 mg/dL (74-106); Potassium 4.1 mmol/L (3.5-5.1); Sodium Level 140 mmol/L (136-145); Thyroid Stim Hormone (TSH) 1.17 uIU/mL (0.358-3.74)
== END | disposition home or self-care (01) ==
LOC: MTLAB 07:29
PROVIDERS: Family Provider Internal Medicine; PCP Internal Medicine; Referring Provider Internal Medicine; Visit Provider Internal Medicine
DX: E03.9 Hypothyroidism, unspecified (principal); E11.69 Type 2 diabetes mellitus with other specified complication; E78.5 Hyperlipidemia, unspecified
CPT/HCPCS: 36415; 80053; 82043; 82570; 83036; 84439; 84443

== ENCOUNTER → 2018-12-29 | Outpatient (CLI) | payer OTHER, SELFPAY ==
[2018-11-28 13:21] VITALS: BMI 43.2
[2018-12-29 10:11] LABS: Absolute Lymphocyte Count 1.95 X10^3/ul (0.83-4.51); Basophil# 0.02 X10^3/uL; Basophil% 0.4 % (0-1); Eosinophil# 0.25 X10^3/uL; Eosinophils% 4.5 % (0-5); Hematocrit 39.1 % (37-47); Hemoglobin 12.9 g/dl (12.0-15.0); Lymphocyte # 1.95 X10^3/ul (4.0); Lymphocyte % 35.3 % (19-41); Mean Corpuscular Hgb 29.6 pg (27.0-32.0); Mean Corpuscular Volume 89.7 fL (81-99); Mean Platelet Vol. 9.9 fl (6.2-12.0); Monocyte# 0.32 X10^3/uL; Monocyte% 5.8 % (0-10); Neutrophil # 2.96 X10^3/uL (2.7-7.7); Neutrophil % 53.6 % (47-70); Platelet Count 146 K/mm3 (150-450); RBC Distribution Width CV 13.2 % (11.6-14.6); RBC Distribution Width SD 43.3 fl (35.1-43.9); Red Blood Count 4.36 M/mm3 (4.2-5.4); White Blood Count 5.5 K/mm3 (4.4-11.0)
[2018-12-29 10:12] LABS: POSITIVE COUNT NO; POSITIVE DIFFERENTIAL NO; POSITIVE MORPHOLOGY NO
[2018-12-29 10:29] LABS: Cholesterol 135 mg/dL (200); High Density Lipoprotein 42 mg/dL; Triglycerides 82 mg/dL; Very Low Density Lipoprotein 16 mg/dL (5-40)
== END | disposition home or self-care (01) ==
LOC: MTLAB 08:13
PROVIDERS: Family Provider Internal Medicine; PCP Internal Medicine; Referring Provider Internal Medicine; Visit Provider Internal Medicine
DX: E11.9 Type 2 diabetes mellitus without complications (principal); G47.30 Sleep apnea, unspecified
CPT/HCPCS: 36415; 80061; 85025

== ENCOUNTER → 2019-07-13 11:32 | Outpatient (CLI) | payer OTHER, SELFPAY ==
[2019-04-13 09:44] VITALS: BMI 43.9
[2019-07-13 13:06] LABS: Vitamin B12 416 pg/mL (211-911)
== END ==
PROVIDERS: Family Provider Internal Medicine; PCP Internal Medicine; Visit Provider Internal Medicine
DX: E53.8 Deficiency of other specified B group vitamins (principal)
CPT/HCPCS: 36415; 82607

== ENCOUNTER → 2019-12-14 | Outpatient (CLI) | payer OTHER, MEDICAID, SELFPAY ==
[2019-10-26 08:45] VITALS: BMI 43.9
[2019-12-14 10:41] LABS: ALB/GLOB Ratio 1.2 RATIO (0.9-2.4); AST(SGOT) 17 U/L (15-37); Alanine Aminotransfer ALT/SGPT 32 U/L (13-56); Albumin, Serum 4.2 g/dL (3.2-5.0); Alkaline Phosphatase 92 U/L (45-117); Anion Gap 5 (5-15); BUN 16 mg/dL (7-18); BUN/Creat Ratio 20.1 RATIO (10-20); Calcium,Total 9.7 mg/dL (8.5-10.1); Chloride 107 mmol/L (98-107); Cholesterol 133 mg/dL (200); EST Glomerular Filtration Rate 80 mL/min (>60); Est Glom Filt Rate - Afr Amer 96 mL/min (>60); Globulin 3.5 g/dL (2.2-4.2); Glucose 107 mg/dL (74-106); High Density Lipoprotein 52 mg/dL; Potassium 4.3 mmol/L (3.5-5.1); Protein, Total 7.7 g/dL (6.4-8.2); Sodium Level 140 mmol/L (136-145); T4 Free Direct 1.09 ng/dL (0.76-1.46); Thyroid Stim Hormone (TSH) 0.49 uIU/mL (0.358-3.74); Triglycerides 67 mg/dL; Very Low Density Lipoprotein 13 mg/dL (5-40)
[2019-12-14 10:46] LABS: Microalbumin,Random Urine 6.2 mg/L (NO RANGE EST.); Microalbumin:Creatinine Ratio 5.6 mg/g CRE (<30 mg/g CRE)
== END | disposition home or self-care (01) ==
LOC: MTLAB 07:32
PROVIDERS: PCP Internal Medicine; Referring Provider Internal Medicine Endocrinology, Diabetes & Metabolism; Visit Provider Internal Medicine Endocrinology, Diabetes & Metabolism
DX: E03.8 Other specified hypothyroidism (principal); E06.3 Autoimmune thyroiditis; E11.69 Type 2 diabetes mellitus with other specified complication; E78.5 Hyperlipidemia, unspecified
CPT/HCPCS: 36415; 80053; 80061; 82043; 82570; 84439; 84443

== ENCOUNTER → 2019-12-21 | Outpatient (CLI) | payer OTHER, MEDICAID, SELFPAY ==
[2019-12-21 10:23] VITALS: BMI 43.9
--- NOTE | 2019-12-21 11:43 | RAD_ITS ---
STUDY: X-RAY - CERVICAL SPINE REASON FOR EXAM: Female, 54 years old. Cervical radiculopathy TECHNIQUE: 3 view(s) of the cervical spine were obtained. COMPARISON: None FINDINGS: Normal anterior atlantoaxial articulation. Normal odontoid process. There is straightening of the normal cervical lordosis. Normal vertebral bodies and endplates. Mild disc space narrowing at the C5-C6 and C6-C7 level. Normal visualized intervertebral neuroforamina. The soft tissue structures are unremarkable. RAD/Cerv Spine 2 or 3 Views IMPRESSION: Mild degree of disc space narrowing at the C5-C6 and C6-C7 levels. Electronically Signed: Vitor Park, at 15:06 EDT , Service support ,
--- NOTE | 2019-12-21 11:43 | RAD_ITS ---
STUDY: X-RAY - PELVIS AND BILATERAL HIPS REASON FOR EXAM: Female, 54 years old. Pain in both hips, left worse than right TECHNIQUE: AP view of the pelvis.? 2 views of the right hip, and 2 views of the left hip were obtained. COMPARISON: None. FINDINGS: There is a non-specific bowel gas pattern. Normal visualized soft tissue structures. Normal bilateral iliac wings, sacroiliac joints and visualized sacrum. Normal bilateral superior and inferior pubic rami. Normal pubic symphysis. Normal bilateral ischial tuberosities. Normal visualized right femoral head. There is osteoarthritic spur formation of the right acetabular rim. Normal right hip joint. Normal visualized left femoral head. Normal left acetabulum. Normal left hip joint. RAD/Hips B/L min 2 views w/ Pelvis IMPRESSION: Normal x-ray examination of the pelvis and bilateral hips. Electronically Signed: Vitor Park, at 15:08 EDT , Service support ,
[2019-12-21 15:20] LABS: Absolute Lymphocyte Count 2.53 X10^3/uL (0.83-4.51); Absolute Neutrophil Count 5.4 X10^3/uL (2.0-7.7); Basophil# 0.03 X10^3/uL; Basophil% 0.3 % (0-1); Eosinophil# 0.21 X10^3/uL; Eosinophils% 2.4 % (0-5); Hematocrit 43.3 % (37-47); Hemoglobin 13.8 g/dL (12.0-15.0); Lymphocyte # 2.53 X10^3/ul (4.0); Lymphocyte % 28.7 % (19-41); Mean Corp Hgb Conc 31.9 g/dL (32-36); Mean Corpuscular Hgb 28.5 pg (27.0-32.0); Mean Corpuscular Volume 89.3 fL (81-99); Mean Platelet Vol. 9.7 fl (6.2-12.0); Monocyte# 0.58 X10^3/uL; Monocyte% 6.6 % (0-10); NRBC Flagged by Analyzer 0 % (0-5); Neutrophil # 5.43 X10^3/uL (2.7-7.7); Neutrophil % 61.7 % (47-70); Platelet Count 185 K/mm3 (150-450); RBC Distribution Width CV 14.6 % (11.6-14.6); RBC Distribution Width SD 46.6 fl (35.1-43.9); Red Blood Count 4.85 M/mm3 (4.2-5.4); White Blood Count 8.8 K/mm3 (4.4-11.0)
[2019-12-21 15:49] LABS: Hemoglobin A1c 5.7 % (3.8-5.6)
[2019-12-21 19:11] LABS: Vitamin B12 1105 pg/mL (211-911)
== END | disposition home or self-care (01) ==
PROVIDERS: PCP Internal Medicine; Referring Provider Internal Medicine; Visit Provider Internal Medicine
DX: I10 Essential (primary) hypertension (principal); E11.9 Type 2 diabetes mellitus without complications; E53.8 Deficiency of other specified B group vitamins; M54.12 Radiculopathy, cervical region; M25.551 Pain in right hip; M25.552 Pain in left hip
CPT/HCPCS: 36415; 72040; 73521; 82607; 83036; 85025

== ENCOUNTER → 2020-01-11 | Outpatient (CLI) | payer OTHER, MEDICAID, SELFPAY ==
[2019-12-21 11:26] VITALS: BMI 43.9
[2020-01-08 14:27] VITALS: BMI 43.9
--- NOTE | 2020-01-11 10:06 | BI_ITS ---
MAMMOGRAPHY - BILATERAL SCREENING REASON FOR EXAM: Female, 54 years old. Routine annual screening examination. PERTINENT HISTORY: Aunt with breast cancer. TECHNIQUE: Digital bilateral breast quentin (3D mammographic acquisition) in the CC and MLO projections. 2-D mediolateral oblique (MLO) and craniocaudad (CC) views of both breasts were obtained. CAD: Full Field Digital Mammography with Computer Added Detection was performed. COMPARISON: Comparison is made with prior study dated June 05, 2018 and August 21, 2015. FINDINGS: Breast Composition: The breasts are almost entirely fatty. There are no dominant masses or suspicious calcifications. Stable benign-appearing bilateral axillary lymph nodes. No other significant abnormalities are identified. There has been no significant change since the prior study. BI/SCREEN MAMM (CAD) W/QUENTIN BILAT IMPRESSION: Stable bilateral screening mammogram. Yearly follow-up mammogram recommended. (A) ASSESSMENT CATEGORY: BIRADS Category 2: Benign. A letter regarding these results will be sent to the patient by the facility within 30 days. Approximately 10% of breast cancers are not detected by mammography. A normal mammogram should not delay biopsy of a clinically suspicious abnormality. [id number] Electronically Signed: Vitor Park, at 11:07 EDT , Service support ,
== END | disposition home or self-care (01) ==
LOC: OPBI 10:06
PROVIDERS: PCP Internal Medicine; Visit Provider Internal Medicine
DX: Z12.31 Encounter for screening mammogram for malignant neoplasm of breast (principal)
CPT/HCPCS: 77063; 77067

== ENCOUNTER → 2020-10-23 15:36 | Outpatient (CLI) | payer OTHER, MEDICAID, SELFPAY ==
[2020-10-23 15:02] VITALS: BMI 39.1
[2020-10-23 16:50] LABS: Absolute Lymphocyte Count 2.99 X10^3/uL (0.83-4.51); Absolute Neutrophil Count 4.7 X10^3/uL (2.0-7.7); Basophil# 0.05 X10^3/uL; Basophil% 0.6 % (0-1); Eosinophil# 0.35 X10^3/uL; Hematocrit 44.7 % (37-47); Hemoglobin 14.5 g/dL (12.0-15.0); Lymphocyte # 2.99 X10^3/ul (0.83-4.51); Lymphocyte % 34.4 % (19-41); Mean Corp Hgb Conc 32.4 g/dL (32-36); Mean Corpuscular Hgb 29.5 pg (27.0-32.0); Mean Platelet Vol. 9.7 fl (6.2-12.0); Monocyte# 0.56 X10^3/uL; Monocyte% 6.4 % (0-10); NRBC Flagged by Analyzer 0 % (0-5); Neutrophil # 4.69 X10^3/uL (2.7-7.7); Neutrophil % 53.9 % (47-70); Platelet Count 192 K/mm3 (150-450); RBC Distribution Width CV 14.3 % (11.6-14.6); RBC Distribution Width SD 47.6 fl (35.1-43.9); Red Blood Count 4.91 M/mm3 (4.2-5.4); White Blood Count 8.7 K/mm3 (4.4-11.0)
[2020-10-23 17:12] LABS: Anion Gap 5 (5-15); BUN 19 mg/dL (7-18); BUN/Creat Ratio 22.5 RATIO (10-20); Calcium,Total 9.7 mg/dL (8.5-10.1); Chloride 106 mmol/L (98-107); Creatinine, Serum 0.84 mg/dL (0.55-1.02); EST Glomerular Filtration Rate 74 mL/min (>60); Est Glom Filt Rate - Afr Amer 90 mL/min (>60); Glucose 106 mg/dL (74-106); Potassium 4.2 mmol/L (3.5-5.1); Sodium Level 137 mmol/L (136-145); Thyroid Stim Hormone (TSH) 1.27 uIU/mL (0.358-3.74)
== END ==
PROVIDERS: PCP Internal Medicine; Referring Provider Internal Medicine; Visit Provider Internal Medicine
DX: E06.3 Autoimmune thyroiditis (principal); E11.9 Type 2 diabetes mellitus without complications; I10 Essential (primary) hypertension
CPT/HCPCS: 36415; 80048; 84443; 85025

== ENCOUNTER → 2020-12-31 16:49 | Outpatient (CLI) | payer OTHER, MEDICAID, SELFPAY ==
[2020-12-31 16:38] VITALS: BMI 39.1
--- NOTE | 2020-12-31 16:51 | RAD_ITS ---
STUDY: X-RAY CHEST REASON FOR EXAM: Female, 55 years old. Cough. TECHNIQUE: PA and lateral views of the chest. COMPARISON: 08/18/2017. FINDINGS: The lungs are clear and expanded. There is no demonstrated pleural abnormality. Normal size heart. Normal mediastinum and phuong. Normal visualized pulmonary arteries. Normal visualized aortic arch and descending thoracic aorta. Normal visualized thoracic spine. Normal visualized ribs, clavicles, and shoulders. There is no demonstrated abnormality of the visualized soft tissue structures of the upper abdomen. RAD/Chest PA and Lateral IMPRESSION: No acute cardiopulmonary disease. No major interval change. Electronically Signed: Jovani Anguiano DO at 17:49 EDT Tel [phone], Service support ,
== END ==
PROVIDERS: PCP Internal Medicine; Referring Provider Physician Assistant; Visit Provider Physician Assistant
DX: R05 Cough (principal)
CPT/HCPCS: 71046

== ENCOUNTER → 2021-02-06 14:55 | Outpatient (CLI) | payer OTHER, MEDICAID, SELFPAY ==
[2021-01-26 13:20] VITALS: BMI 40.1
--- NOTE | 2021-02-06 14:59 | BI_ITS ---
MAMMOGRAPHY - BILATERAL SCREENING REASON FOR EXAM: Female, 55 years old. Routine annual screening examination. PERTINENT HISTORY: Aunt with breast cancer. Remote left excisional breast biopsy. TECHNIQUE: Digital bilateral breast quentin (3D mammographic acquisition) in the CC and MLO projections. 2-D mediolateral oblique (MLO) and craniocaudad (CC) views of both breasts were obtained. CAD: Full Field Digital Mammography with Computer Added Detection was performed. COMPARISON: Comparison is made with prior examination dated 01/11/2020 and 06/05/2018. FINDINGS: Breast Composition: The breasts are almost entirely fatty. There are no dominant masses or suspicious calcifications. Stable benign-appearing bilateral axillary No other significant abnormalities are identified. There has been no significant change since the prior study. BI/SCRN MAMM (CAD)W/QUENTIN BILAT IMPRESSION: Stable bilateral screening mammogram. Yearly follow-up mammogram recommended. (A) ASSESSMENT CATEGORY: BIRADS Category 2: Benign. A letter regarding these results will be sent to the patient by the facility within 30 days. Approximately 10% of breast cancers are not detected by mammography. A normal mammogram should not delay biopsy of a clinically suspicious abnormality. [id number] Electronically Signed: Vitor Park MD at 9:40 EDT , Service support ,
== END ==
PROVIDERS: PCP Internal Medicine; Referring Provider Nurse Practitioner Women's Health; Visit Provider Nurse Practitioner Women's Health
DX: Z12.31 Encounter for screening mammogram for malignant neoplasm of breast (principal)
CPT/HCPCS: 77063; 77067

== ENCOUNTER → 2022-01-20 | Outpatient (CLI) | payer OTHER, SELFPAY ==
[2022-01-20 08:00] LABS: ALB/GLOB Ratio 1.1 RATIO (0.9-2.4); AST(SGOT) 23 U/L (15-37); Alanine Aminotransfer ALT/SGPT 42 U/L (13-56); Albumin, Serum 3.8 g/dL (3.2-5.0); Alkaline Phosphatase 83 U/L (45-117); Anion Gap 6 (5-15); BUN 14 mg/dL (7-18); BUN/Creat Ratio 15.5 RATIO (10-20); Chloride 108 mmol/L (98-107); Cholesterol 126 mg/dL (200); EST Glomerular Filtration Rate 68 mL/min (>60); Est Glom Filt Rate - Afr Amer 83 mL/min (>60); Globulin 3.4 g/dL (2.2-4.2); Glucose 160 mg/dL (74-106); High Density Lipoprotein 47 mg/dL; Potassium 3.9 mmol/L (3.5-5.1); Protein, Total 7.2 g/dL (6.4-8.2); Sodium Level 140 mmol/L (136-145); T4 Free Direct 1.22 ng/dL (0.76-1.46); Thyroid Stim Hormone (TSH) 0.72 uIU/mL (0.358-3.74); Triglycerides 62 mg/dL; Very Low Density Lipoprotein 12 mg/dL (5-40)
[2022-01-20 08:04] LABS: Microalbumin,Random Urine 7.4 mg/L (NO RANGE EST.); Microalbumin:Creatinine Ratio 7.5 mg/g CRE (<30 mg/g CRE)
[2022-01-20 08:11] LABS: Vitamin D,25 Hydroxy 24.6 ng/mL
== END | disposition home or self-care (01) ==
LOC: LAB 06:37
PROVIDERS: PCP Internal Medicine; Referring Provider Internal Medicine Endocrinology, Diabetes & Metabolism; Visit Provider Internal Medicine Endocrinology, Diabetes & Metabolism
DX: I10 Essential (primary) hypertension (principal); E11.9 Type 2 diabetes mellitus without complications; E78.2 Mixed hyperlipidemia; E03.8 Other specified hypothyroidism; E06.3 Autoimmune thyroiditis; E55.9 Vitamin D deficiency, unspecified
CPT/HCPCS: 36415; 80053; 80061; 82043; 82306; 82570; 84439; 84443

== ENCOUNTER → 2022-03-29 | Outpatient (CLI) | payer OTHER, SELFPAY ==
--- NOTE | 2022-03-29 11:52 | BI_ITS ---
MAMMOGRAPHY - BILATERAL SCREENING REASON FOR EXAM: Female, 56 years old. Routine annual screening examination. PERTINENT HISTORY: Aunt with breast cancer. TECHNIQUE: Digital bilateral breast quentin (3D mammographic acquisition) in the CC and MLO projections. 2-D mediolateral oblique (MLO) and craniocaudad (CC) views of both breasts were obtained. CAD: Full Field Digital Mammography with Computer Added Detection was performed. COMPARISON: Comparison is made with prior study dated 02/06/2021 and 01/11/2020. FINDINGS: Breast Composition: The breasts are almost entirely fatty. There are no dominant masses or suspicious calcifications. Stable small benign-appearing bilateral axillary No other significant abnormalities are identified. There has been no significant change since the prior study. BI/SCRN MAMM (CAD)W/QUENTIN BILAT IMPRESSION: Stable bilateral screening mammogram. Yearly follow-up mammogram recommended. (A) ASSESSMENT CATEGORY: BIRADS Category 2: Benign. A letter regarding these results will be sent to the patient by the facility within 30 days. Approximately 10% of breast cancers are not detected by mammography. A normal mammogram should not delay biopsy of a clinically suspicious abnormality. [id number] Electronically Signed: Vitor Park MD at 12:30 EDT ,
== END | disposition home or self-care (01) ==
PROVIDERS: PCP Internal Medicine; Visit Provider Nurse Practitioner Women's Health
DX: Z12.31 Encounter for screening mammogram for malignant neoplasm of breast (principal)
CPT/HCPCS: 77063; 77067

== ENCOUNTER 2022-11-09 08:31 | Day surgery (SDC) | payer OTHER, SELFPAY ==
[2022-11-09] VITALS (7 sets, daily range): BP systolic 91–116; BP diastolic 60–72; PULSE 79–85; RESP 16–18; TEMP 36.2–37.7; O2SAT 94–100; BMI 39.6
[2022-11-09] MEDS: Lactated Ringers 1,000 ML 15 ML IV (09:15)
--- NOTE | 2022-11-09 09:38 | H&P.OPEN ---
HPI - General HPI Narrative MARY DOMINGUEZ, is a 57 F who presents for screening colonoscopy. Patient's last colonoscopy was a few years ago. Patient has screenings frequently due to family history of colon cancer in her father under age 60. She denies any abdominal pain. She does have hemorrhoids and she has seen some blood in her stool during the prep but otherwise she does not have any abdominal pain or blood in the stool. [facility] Medical History (Updated 11/09/22 @ 09:[address] Vito Fischer MD) Anemia Asthma Back pain Chronic bronchitis CPAP (continuous positive airway pressure) dependence Dietary restriction Fatty liver High cholesterol History of edema History of stress test Hypertension Hypertension Insulin dependent diabetes mellitus Migraine headache Non-smoker Obesity Post-menopausal Seasonal allergies Shortness of breath on exertion Sleep apnea Thyroid disease Wears glasses Home Medications aspirin 81 mg tablet,delayed release (Adult Aspirin Regimen) 81 mg PO QDAY 07/18/17 [History Last Taken Unknown] compress.stocking,knee,reg,lrg #2 ea 02/16/19 [Rx Last Taken Unknown] cholecalciferol (vitamin D3) 50 mcg (2,000 unit) capsule 50 mcg PO DAILY 01/28/22 [History Last Taken Unknown] empagliflozin 25 mg tablet (Jardiance) 25 mg PO DAILY #90 tabs 02/25/22 [Rx Last Taken Unknown] glimepiride 4 mg tablet 4 mg PO BID #180 tabs 07/23/22 [Rx Last Taken Unknown] levothyroxine 88 mcg tablet 88 mcg PO DAILY #90 tabs 07/23/22 [Rx Last Taken Unknown] metformin 500 mg tablet 1,000 mg PO BID #360 tabs 07/23/22 [Rx Last Taken Unknown] blood-glucose sensor (FreeStyle Mayte 3 Sensor device) #2 ea 07/27/22 [Rx Last Taken Unknown] docusate sodium 100 mg capsule (Colace) 250 mg PO DAILY PRN Constipation 10/08/22 [History Last Taken Unknown] loratadine 10 mg tablet 10 mg PO DAILY PRN allergy symptoms 10/08/22 [History Last Taken Unknown] vitamin B complex 1 tab PO DAILY 10/08/22 [History Last Taken Unknown] BD Ultra-Fine Ana Lilia Pen Needle 32 gauge x 5/32 (pen needle, diabetic) #100 ea 10/25/22 [Rx Last Taken Unknown] blood-glucose sensor (FreeStyle Mayte 3 Sensor device) #2 ea 10/25/22 [Rx Last Taken Unknown] insulin aspar prot-insulin aspart 100 unit/mL (70-30) subcutaneous pen (Novolog Mix 70-30FlexPen U-100) 8 unit subcut QHS 11/04/22 [History Last Taken Unknown] lisinopril 10 mg tablet 10 mg PO QHS 11/04/22 [History Last Taken Unknown] rosuvastatin 10 mg tablet 10 mg PO QHS 11/04/22 [History Last Taken Unknown] Allergy/AdvReac Type Severity Reaction Status Date / Time Environmental Allergies: Allergy Severe Itching Verified 11/04/22 14:23 Uncoded [hay fever] poison faith extract Allergy Rash Verified 11/04/22 14:23 Family History (Updated 10/08/22 @ 08:47 by Amparo Dodge) Mother Arthritis High cholesterol Thyroid disorder Melanoma Hypertension Father Colon cancer, Onset Age: 54 Brother Arthritis Unknown Cancer Heart disease Hypertension High cholesterol Melanoma Surgical History (Updated 11/04/22 @ 14:32 by Tianna Hernandez) H/O colonoscopy Hx of cholecystectomy S/P lumpectomy, left breast Social History current occupational status: employed 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 Smoking Status: Never smoker second hand exposure: No alcohol intake: never substance use type: does not use caffeine: Yes what type of physical activity do you participate in: walking and bicycling frequency: 3-4 times per week seatbelt use: always do you feel safe at home: Yes additional social history: Snfbuay-Klyag-Zbcdnszmq Past Medical/Surgical History Planned Operation Planned Operative Procedure/s: CSCOPE OA Previous Hospitalizations/Surgeries HX Hospitalizations: No Any Problems With Anesthesia: No You/Your Family Experience Fever (Hyperthermia) With Anes: No Cholinesterase deficiency: No Cardiovascular Hx of Irregular Heartbeat and/or Afib: No Hx Heart Attack: No Hx Congestive Heart Failure: No Hx Hypertension: Yes (CONTROLLED WITH MED) Hx Internal Defibrillator: No Hx Pacemaker: No Respiratory Hx Chronic Obstructive Pulmonary Disease (COPD): No Hx Asthma: No Hx Emphysema: No Hx Sleep Apnea: Yes CPAP: Yes BIPAP: No Hx Respiratory Tract Infection/Cold (presently): No Result (for STOP score): Positive Smoking Status: Never smoker Gastrointestinal Hx Gastroesophageal Reflux: No Hx Ulcer: No Neurological Hx Seizures: No Hx Multiple Sclerosis: No Hx Parkinson's Disease: No Hx Head/Neck Injury: No Hx Headaches: No Hx Back Injury/Pain: Yes Does patient have nerve stimulator: No Reproduction : No Psycho/Social Hx Anxiety: No Hx Depression: No Miscellaneous Recent Exposure to Contagious Disease: No Allergies Environmental Allergies: Uncoded [hay fever] Allergy (Severe, Verified 11/04/22 14:23) Itching Runny nose poison faith extract Allergy (Verified 11/04/22 14:23) Rash Discharge Is Pt Admitted From a Halfway, or a Senior Care: No After D/C, Where Do you Plan to Go: Return Home Vital Signs Vital Signs Vital Signs: 11/09/22 09:07 11/09/22 09:07 Temperature 97.1 F L Temperature Source Temporal Pulse Rate 85 Respiratory Rate 16 Respiratory Pattern Normal Blood Pressure 116/68 Blood Pressure Mean 84 Blood Pressure Source Monitor Blood Pressure Position Sitting Blood Pressure Location Left Arm Pulse Ox 100 Oxygen Delivery Method Room Air Weight Weight: 253 lb 8.505 oz Body Mass Index (BMI) 39.6 Physical Exam Const alert and oriented x3 HEENT normocephalic Eyes PERRL Resp normal respiratory effort and normal air movement Cardio regular rate and regular rhythm GI soft to palpation, non-tender and non-distended Extremity normal to inspection Assessment & Plan Assessment/Plan (1) Family history of malignant neoplasm of colon in relative diagnosed when younger than 50 years of age: PLAN: I explained endoscopy in detail to the patient. I explained the risks including but not limited to stroke or heart attack with anesthesia, perforation of the GI tract, bleeding, infection. I explained that any of these could necessitate further emergency surgery. The patient understands and all questions were answered sufficiently. The patient wishes to proceed with procedure. Vito Fischer MD Pager: [facility] [address] [place] [address], [address] [place] [address] Office: Surgery Risks - Colonoscopy Risks Include but are not Limited To: Risks include but are not limited to: Bleeding, perforation requiring further surgery, inability to complete colonoscopy requiring barium enema.
[2022-11-09 09:40] LABS: Bedside Glucose 169 mg/dL (74-106)
--- NOTE | 2022-11-09 10:30 | OP.COLON_ITS ---
Patient Name: Geovanna Garcia Procedure Date: 11/09/2022 9:42 AM Date of : 1965 Age: 57 Procedure: Colonoscopy Indications: Screening in patient at increased risk: Colorectal cancer in father before age 60 Providers: Vito Fischer MD Medicines: Monitored Anesthesia Care Patient Profile: This is a 57 year old female. Refer to note in patient chart for documentation of history and physical. Last Colonoscopy: several years ago. Complications: No immediate complications. Procedure: Pre-Anesthesia Assessment: - Prior to the procedure, a History and Physical was performed, and patient medications and allergies were reviewed. The patient's tolerance of previous anesthesia was also reviewed. The risks and benefits of the procedure and the sedation options and risks were discussed with the patient. All questions were answered, and informed consent was obtained. Prior Anticoagulants: The patient has taken no previous anticoagulant or antiplatelet agents. After reviewing the risks and benefits, the patient was deemed in satisfactory condition to undergo the procedure. After I obtained informed consent, the scope was passed under direct vision. Throughout the procedure, the patient's blood pressure, pulse, and oxygen saturations were monitored continuously. The Colonoscope was introduced through the anus and advanced to the cecum, identified by appendiceal orifice and ileocecal valve. The colonoscopy was performed without difficulty. The patient tolerated the procedure well. The quality of the bowel preparation was good. Scope In: 9:57:46 AM Scope Withdrawal Time 0 hours 3 minutes 41 seconds Scope Out: 10:23:16 AM Total Procedure Duration Time 0 hours 25 minutes 30 seconds Findings: The entire examined colon appeared normal on direct and retroflexion views. Impression: - The entire examined colon is normal on direct and retroflexion views. - No specimens collected. Recommendation: - Discharge patient to home. - Resume previous diet. - Continue present medications. - Repeat colonoscopy in 5 years for screening purposes. Procedure Code(s): --- Professional --- 91176, Colonoscopy, flexible; diagnostic, including collection of specimen(s) by brushing or washing, when performed (separate procedure) Diagnosis Code(s): --- Professional --- Z80.0, Family history of malignant neoplasm of digestive organs CPT copyright 2017 [employer] [place] [employer]. All rights reserved. The codes documented in this report are preliminary and upon external grinder tender review may be revised to meet current compliance requirements. Vito Fischer MD 11/09/2022 10:30:00 AM This report has been signed electronically. Number of Addenda: 0 Note Initiated On: 11/09/2022 9:42 AM
--- NOTE | 2022-11-09 10:31 | OP.CCLET_ITS ---
11/09/2022 Marietta Strickland MD [address] [place] [address] [place] [address] Re : Colonoscopy procedure for Geovanna Garcia Dear Dr. Strickland This procedure was performed on Wednesday, November 09, 2022. My impressions and recommendations are as follows: Impressions : - The entire examined colon is normal on direct and retroflexion views. - No specimens collected. Recommendations : - Discharge patient to home. - Resume previous diet. - Continue present medications. - Repeat colonoscopy in 5 years for screening purposes. My findings are described in the full procedure note, which is enclosed. If I can be of further assistance, please feel free to contact me at Doctor phone number(s): , Work: . Sincerely, Vito Fischer MD 11/09/2022 10:30:00 AM This report has been signed electronically.
== END 2022-11-09 11:08 | disposition home or self-care (01) ==
LOC: EN 08:32 → AC 08:33
PROVIDERS: PCP Internal Medicine; Referring Provider Surgery; Visit Provider Surgery
PROC: 0DJD8ZZ Inspection of Lower Intestinal Tract, Via Natural or Artificial Opening Endoscopic (ICD-10-PCS; CPT 45378; principal; 2022-11-09 09:40)
DX: Z12.11 Encounter for screening for malignant neoplasm of colon (principal); E11.9 Type 2 diabetes mellitus without complications; I10 Essential (primary) hypertension; E78.00 Pure hypercholesterolemia, unspecified; Z79.84 Long term (current) use of oral hypoglycemic drugs; Z80.0 Family history of malignant neoplasm of digestive organs; K64.9 Unspecified hemorrhoids; Z79.82 Long term (current) use of aspirin; Z79.899 Other long term (current) drug therapy; E06.3 Autoimmune thyroiditis; E66.9 Obesity, unspecified
CPT/HCPCS: 45378; 82962; J7120; J2405

== ENCOUNTER → 2022-11-26 | Outpatient (CLI) | payer OTHER, SELFPAY ==
[2022-11-26 15:18] LABS: Hemoglobin A1c 7.7 % (3.8-5.6)
== END | disposition home or self-care (01) ==
LOC: MTLAB 11:49
PROVIDERS: PCP Internal Medicine; Referring Provider Internal Medicine Endocrinology, Diabetes & Metabolism; Visit Provider Internal Medicine Endocrinology, Diabetes & Metabolism
DX: E11.9 Type 2 diabetes mellitus without complications (principal)
CPT/HCPCS: 36415; 83036

== ENCOUNTER → 2023-01-13 | Outpatient (CLI) | payer OTHER, SELFPAY ==
--- NOTE | 2023-01-13 08:10 | BD_ITS ---
STUDY: DUAL ENERGY X-RAY ABSORPTIOMETRY / DXA REASON FOR EXAM: Female, 57 years old. Screening TECHNIQUE: Bone Mineral Density (BMD) measurements of lumbar spine and bilateral hips were obtained. COMPARISON: None. FINDINGS: Lumbar Spine (L1-L4): g/cm2 (1.309) / T-score (2.4) / Z-score (3.7) Findings are suggestive of normal bone density with a low fracture risk. Left Femur Total: g/cm2 (1.080) / T-score (1.1) / Z-score (2.0) Left Femoral Neck: g/cm2 (0.879) / T-score (0.3) / Z-score (1.5) Right Femur Total: g/cm2 (1.061) / T-score (1.0) / Z-score (1.8) Right Femoral Neck: g/cm2 (0.892) / T-score (0.4) / Z-score (1.6) BD/Dexa Bone Density Study IMPRESSION: The patient is considered normal as outlined below according to World Krish Organization (WHO) criteria with a low fracture risk. Reference Information: The T-score is the number of standard deviations above or below the standard which is normal for young adults at their peak bone mineral density. The World Health Organization (WHO) interprets the T-scores as follows: Above -1 Normal bone density Between -1 and -2.5 Osteopenia Equal to / or below -2.5 Osteoporosis As a practical clinical guideline, osteopenia may be graded as follows: Mild -1 through -1.5 Moderate -1.6 through -2.0 Severe -2.1 through -2.4 The Z-score is the number of standard deviations above or below age-matched controls. A Z-score of less than -1.5 would be considered abnormal. References: 1. NIH Osteoporosis and Related Bone Diseases www osteo.org 2. International Society for Clinical Densitometry www iscd.org 3. National Osteoporosis Foundation www nof.org Electronically Signed: Vitor Park MD at 15:05 EDT ,
== END | disposition home or self-care (01) ==
LOC: OPBD 07:56
PROVIDERS: PCP Internal Medicine; Referring Provider Internal Medicine Endocrinology, Diabetes & Metabolism; Visit Provider Internal Medicine Endocrinology, Diabetes & Metabolism
DX: E11.9 Type 2 diabetes mellitus without complications (principal); E78.2 Mixed hyperlipidemia; E03.8 Other specified hypothyroidism; E06.3 Autoimmune thyroiditis; I10 Essential (primary) hypertension; Z78.0 Asymptomatic menopausal state
CPT/HCPCS: 77080

== ENCOUNTER → 2023-03-16 | Outpatient (CLI) | payer OTHER, SELFPAY ==
[2023-03-16 10:42] LABS: Vitamin D,25 Hydroxy 52.3 ng/mL
[2023-03-16 10:53] LABS: Microalbumin,Random Urine 14.7 mg/L (NO RANGE EST.)
[2023-03-16 10:59] LABS: ALB/GLOB Ratio 1.1 RATIO (0.9-2.4); AST(SGOT) 20 U/L (15-37); Alanine Aminotransfer ALT/SGPT 37 U/L (13-56); Albumin, Serum 3.6 g/dL (3.2-5.0); Alkaline Phosphatase 80 U/L (45-117); Anion Gap 5 (5-15); BUN 12 mg/dL (7-18); BUN/Creat Ratio 13.2 RATIO (10-20); Chloride 109 mmol/L (98-107); Cholesterol 125 mg/dL (200); Creatinine, Serum 0.91 mg/dL (0.55-1.02); EST Glomerular Filtration Rate 68 mL/min (>60); Est Glom Filt Rate - Afr Amer 82 mL/min (>60); Globulin 3.3 g/dL (2.2-4.2); Glucose 185 mg/dL (74-106); High Density Lipoprotein 49 mg/dL; Potassium 4.2 mmol/L (3.5-5.1); Protein, Total 6.9 g/dL (6.4-8.2); Sodium Level 140 mmol/L (136-145); T4 Free Direct 1.04 ng/dL (0.76-1.46); Triglycerides 76 mg/dL; Very Low Density Lipoprotein 15 mg/dL (5-40)
== END | disposition home or self-care (01) ==
PROVIDERS: PCP Internal Medicine; Referring Provider Internal Medicine Endocrinology, Diabetes & Metabolism; Visit Provider Internal Medicine Endocrinology, Diabetes & Metabolism
DX: E11.9 Type 2 diabetes mellitus without complications (principal); E78.2 Mixed hyperlipidemia; E03.8 Other specified hypothyroidism; E06.3 Autoimmune thyroiditis; I10 Essential (primary) hypertension; Z78.0 Asymptomatic menopausal state; E55.9 Vitamin D deficiency, unspecified
CPT/HCPCS: 36415; 80053; 80061; 82043; 82306; 82570; 84439; 84443

== ENCOUNTER → 2023-04-08 | Outpatient (CLI) | payer OTHER, SELFPAY ==
--- NOTE | 2023-04-08 13:11 | BI_ITS ---
MAMMOGRAPHY - BILATERAL SCREENING REASON FOR EXAM: Female, 57 years old. Routine annual screening examination. PERTINENT HISTORY: Aunt with breast cancer. Remote left excisional breast biopsy. TECHNIQUE: Digital bilateral breast quentin (3D mammographic acquisition) in the CC and MLO projections. 2-D mediolateral oblique (MLO) and craniocaudad (CC) views of both breasts were obtained. CAD: Full Field Digital Mammography with Computer Added Detection was performed. COMPARISON: Comparison is made with prior study dated March 29, 2022 and February 06, 2021. FINDINGS: Breast Composition: The breasts are almost entirely fatty. There are no dominant masses or suspicious calcifications. Stable small benign-appearing bilateral axillary lymph nodes. No other significant abnormalities are identified. There has been no significant change since the prior study. BI/SCRN MAMM (CAD)W/QUENTIN BILAT IMPRESSION: Stable bilateral screening mammogram. Yearly follow-up mammogram recommended. (A) ASSESSMENT CATEGORY: BIRADS Category 2: Benign. A letter regarding these results will be sent to the patient by the facility within 30 days. Approximately 10% of breast cancers are not detected by mammography. A normal mammogram should not delay biopsy of a clinically suspicious abnormality. [id number] Electronically Signed: Vitor Park MD at 14:03 EDT ,
== END | disposition home or self-care (01) ==
LOC: OPBI 13:04
PROVIDERS: PCP Internal Medicine; Referring Provider Nurse Practitioner Women's Health; Visit Provider Nurse Practitioner Women's Health
DX: Z12.31 Encounter for screening mammogram for malignant neoplasm of breast (principal)
CPT/HCPCS: 77063; 77067

== ENCOUNTER → 2024-02-15 | Outpatient (CLI) | payer MEDICAID, SELFPAY ==
[2024-02-19 22:06] LABS: HPV APTIMA, High Risk Negative (Negative)
== END | disposition home or self-care (01) ==
LOC: LABSPEC 12:12
PROVIDERS: PCP Internal Medicine; Referring Provider Nurse Practitioner Women's Health; Visit Provider Nurse Practitioner Women's Health
DX: Z12.4 Encounter for screening for malignant neoplasm of cervix (principal); Z78.0 Asymptomatic menopausal state
CPT/HCPCS: 87624; 88175; G0145

== ENCOUNTER → 2024-04-03 | Outpatient (CLI) | payer MEDICAID, SELFPAY ==
[2024-04-03 12:45] LABS: Vitamin D,25 Hydroxy 32.8 ng/mL
[2024-04-03 12:51] LABS: Microalbumin,Random Urine 5.8 mg/L (NO RANGE EST.); Microalbumin:Creatinine Ratio 6.5 mg/g CRE (<30 mg/g CRE)
[2024-04-03 13:14] LABS: ALB/GLOB Ratio 1.2 RATIO (0.9-2.4); AST(SGOT) 20 U/L (15-37); Alanine Aminotransfer ALT/SGPT 31 U/L (13-56); Albumin, Serum 3.9 g/dL (3.2-5.0); Alkaline Phosphatase 87 U/L (45-117); Anion Gap 9 (5-15); BUN 19 mg/dL (7-18); Calcium,Total 9.5 mg/dL (8.5-10.1); Chloride 110 mmol/L (98-107); Cholesterol 130 mg/dL (200); EST Glomerular Filtration Rate 60 mL/min (>60); Est Glom Filt Rate - Afr Amer 73 mL/min (>60); Globulin 3.3 g/dL (2.2-4.2); Glucose 153 mg/dL (74-106); High Density Lipoprotein 46 mg/dL; Potassium 3.9 mmol/L (3.5-5.1); Protein, Total 7.2 g/dL (6.4-8.2); Sodium Level 138 mmol/L (136-145); T4 Free Direct 1.11 ng/dL (0.76-1.46); Triglycerides 64 mg/dL; Very Low Density Lipoprotein 13 mg/dL (5-40)
== END | disposition home or self-care (01) ==
LOC: MTLAB 09:24
PROVIDERS: PCP Internal Medicine; Referring Provider Nurse Practitioner Family; Visit Provider Nurse Practitioner Family
DX: E11.65 Type 2 diabetes mellitus with hyperglycemia (principal); E66.01 Morbid (severe) obesity due to excess calories; Z68.41 Body mass index [BMI] 40.0-44.9, adult; I10 Essential (primary) hypertension; E03.8 Other specified hypothyroidism; E06.3 Autoimmune thyroiditis
CPT/HCPCS: 36415; 80053; 80061; 82043; 82306; 82570; 84439; 84443

== ENCOUNTER → 2024-04-20 | Outpatient (CLI) | payer MEDICAID, SELFPAY ==
--- NOTE | 2024-04-20 07:02 | BI_ITS ---
MAMMOGRAPHY - BILATERAL SCREENING REASON FOR EXAM: Female, 58 years old. Routine annual screening examination. PERTINENT HISTORY: Aunt with breast cancer. Remote left excisional breast biopsy. TECHNIQUE: Digital bilateral breast quentin (3D mammographic acquisition) in the CC and MLO projections. 2-D mediolateral oblique (MLO) and craniocaudad (CC) views of both breasts were obtained. CAD: Full Field Digital Mammography with Computer Added Detection was performed. COMPARISON: Comparison is made with prior study dated April 08, 2023 and March 29, 2022. FINDINGS: Breast Composition: The breasts are almost entirely fatty. There are no dominant masses or suspicious calcifications. Stable small bilateral benign-appearing axillary lymph nodes. No other significant abnormalities are identified. There has been no significant change since the prior study. BI/SCRN MAMM (CAD)W/QUENTIN BILAT IMPRESSION: Stable bilateral screening mammogram. Yearly follow-up mammogram recommended. (A) ASSESSMENT CATEGORY: BIRADS Category 2: Benign. A letter regarding these results will be sent to the patient by the facility within 30 days. Approximately 10% of breast cancers are not detected by mammography. A normal mammogram should not delay biopsy of a clinically suspicious abnormality. [id number] Electronically Signed: Vitor Park MD at 8:38 EDT ,
== END | disposition home or self-care (01) ==
LOC: OPBI 07:01
PROVIDERS: PCP Internal Medicine; Referring Provider Nurse Practitioner Women's Health; Visit Provider Nurse Practitioner Women's Health
DX: Z12.31 Encounter for screening mammogram for malignant neoplasm of breast (principal)
CPT/HCPCS: 77063; 77067

== ENCOUNTER → 2025-04-16 | Outpatient (CLI) | payer BC, SELFPAY ==
[2025-04-16 11:23] LABS: Creatinine, Urine (random) 123.00 mg/dL (28.00-217.00); Microalbumin,Random Urine < 12.0 mg/L (<20 mg/L)
[2025-04-16 11:42] LABS: AST(SGOT) 22 U/L (<=31); Alanine Aminotransfer ALT/SGPT 27 U/L (<=34); Albumin, Serum 4.6 g/dL (3.4-4.8); Alkaline Phosphatase 85 U/L (35-104); Anion Gap 14 (5-15); BUN 13 mg/dL (4-19); BUN/Creat Ratio 14.0 RATIO (10-20); Calcium,Total 9.6 mg/dL (7.6-11.0); Carbon Dioxide 21.3 mmol/L (21.0-32.0); Chloride 105 mmol/L (98-108); Cholesterol 144 mg/dL (<=200); Globulin 2.8 g/dL (2.2-4.2); Glucose 134 mg/dL (70-99); Low Density Lipoprotein Calc. 75 mg/dL; Potassium 3.8 mmol/L (3.3-5.1); Triglycerides 93 mg/dL; Very Low Density Lipoprotein 19 mg/dL (5-40); Vitamin D,25 Hydroxy 38.5 ng/mL (30-100); cholesterol:hdl ratio screen 2.87
== END | disposition home or self-care (01) ==
LOC: MTLAB 08:38
PROVIDERS: PCP Internal Medicine; Referring Provider Internal Medicine Endocrinology, Diabetes & Metabolism; Visit Provider Internal Medicine Endocrinology, Diabetes & Metabolism
DX: E11.65 Type 2 diabetes mellitus with hyperglycemia (principal); E78.2 Mixed hyperlipidemia; E03.8 Other specified hypothyroidism; E06.3 Autoimmune thyroiditis; I10 Essential (primary) hypertension
CPT/HCPCS: 36415; 80053; 80061; 82043; 82306; 82570; 84439; 84443